=== PATIENT | female | born 1985 | race Caucasian/White ===

== ENCOUNTER 2016-12-09 22:39 | Emergency (ER) | payer OTHER ==
[~2016-12-09] VITALS: Ht 172.7 cm; Wt 74.8 kg
[~2016-12-09 22:39] MED LIST: CIPR-225 PO; DOCU100C37 PO; FLUO20CA25 PO; HC A30CR RC; IBUP-1780 PO; LISI1TAB8 PO; METH250T PO; METR500T PO; OMEP20CA12 PO; OXYC-197 PO; OXYC-465 PO; PHEN-452 PO; PREN-37 PO
[2016-12-09] MEDS ORDERED: OMEP40CA36 (22:56)
[2016-12-09] MEDS ORDERED: PHEN-483 (22:56)
--- NOTE | 2016-12-09 23:11 | ED GU-Female ---
General Chief Complaint: Abdominal/GI Problems Stated Complaint: SEVERE KIDNEY PAIN Nursing Triage Note: LEFT FLANK PAIN RADIATING TO ABDOMEN Nursing Sepsis Screen: No Definite Risk Source: patient, RN notes reviewed Exam Limitations: no limitations History of Present Illness Time seen by provider: 23:08 Timing/Duration: this evening (1700) Severity/Quality: severe (9/10), sharp, stabbing Location: left flank Radiation: LLQ Activities at Onset: none Prior Genitourinary Problems: none Modifying Factors: Worsens With Movement Associated Symptoms: abdominal pain, lower back pain Allergies and Home Medications Allergies Coded Allergies: No Known Drug Allergies (Unverified , 10/31/15) Home Medications Cefdinir 300 Mg Capsule, 300 MG PO BID, #20 Ref 0 Prescribed by: KRANTHI CALLES on 12/10/1658 Diclofenac Sodium 50 Mg Tablet.dr, 50 MG PO Q6H PRN for FLANK, #30 Ref 0 Prescribed by: KRANTHI CALLES on 12/10/1658 Omeprazole 40 Mg Capsule.dr, #30 (Reported) Phentermine HCl 37.5 Mg Capsule, #30 (Reported) Constitutional: see HPI Gastrointestinal: LLQ Genitourinary: flank pain (left) : No All Other Systemes Reviewed Negative Unless Noted: Yes (Negative excepted noted.) Past Qvihlmd-Jhcldc-Fweixd Hx Patient Social History Alcohol Use: Occasionally Uses Recreational Drug Use: No Smoking Status: Current Everyday Smoker Type Used: Cigarettes 2nd Hand Smoke Exposure: Yes Recent Foreign Travel: No Contact w/Someone Who Travel: No Recent Infectious Disease Expo: No Recent Hopitalizations: No Immunizations Up To Date Tetanus Booster (TDap): Unknown PED Vaccines UTD: Yes Seasonal Allergies Seasonal Allergies: No Surgeries HX Surgeries: Yes (hernia repair as an infant) Respiratory Hx Respiratory Disorders: No Cardiovascular Hx Cardiac Disorders: Yes Cardiac Disorders: Hypertension Neurological Hx Neurological Disorders: No Reproductive System : No Hx Reproductive Disorders: No HIV/AIDS: No Female Reproductive Disorders: Denies Genitourinary Hx Genitourinary Disorders: No Gastrointestinal Hx Gastrointestinal Disorders: Yes (HX PROCTITIS-OFF ANTIBIOTIC 10/31/15) Gastrointestinal Disorders: Gastroesophageal Reflux Musculoskeletal Hx Musculoskeletal Disorders: No Endocrine Hx Endocrine Disorders: No HEENT HX ENT Disorders: No Loss of Vision: Denies Hearing Impairment: Denies Cancer Hx Cancer: No Psychosocial Hx Psychiatric Problems: Yes Behavioral Health Disorders: Anxiety, Depression Integumentary HX Skin/Integumentary Disorder: No Blood Transfusions Hx Blood Disorders: No Adverse Reaction to a Blood Tr: No Family Medical History Significant Family History: Cancer, Diabetes, GI Disease Family Medial History: Diabetes mellitus 19 MOTHER, Onset:40's - 50 FH: ovarian cancer in first degree relative 19 MOTHER, Onset:30's - 40 Hypercholesterolemia 19 MOTHER, Onset:40's - 50 Meningitis 19 FATHER, Onset:50's - 60 Pancreatitis 19 MOTHER, Onset:40's - 50 Pituitary disease 19 MOTHER, Onset:40's - 50 Physical Exam Vital Signs Vital Sign - Last 12Hours 12/09/16 22:57 Temp 99.1 Pulse 116 Resp 18 B/P (MAP) 144/107 Pulse Ox 96 O2 Delivery Room Air Capillary Refill : Less Than 3 Seconds General Appearance: WD/WN, moderate distress HEENT: normal ENT inspection Neck: normal inspection Cardiovascular: tachycardia Respiratory: no respiratory distress Gastrointestinal: No guarding, No rebound, tenderness (LLQ) Rectal: deferred Back: CVA tenderness (L) Neurologic/Psychiatric: no motor/sensory deficits, alert, oriented x 3 Skin: warm/dry Progress/Results/Core Measures Results/Orders Lab Results Laboratory Tests Test 12/09/16 22:54 Range/Units Urine Color YELLOW Urine Clarity CLOUDY H Urine pH 6 5-9 Urine Specific [place] 1.015 L 1.016-1.022 Urine Protein 4+ NEGATIVE Urine Glucose (UA) NEGATIVE NEGATIVE Urine Ketones NEGATIVE NEGATIVE Urine Nitrite POSITIVE H NEGATIVE Urine Bilirubin NEGATIVE NEGATIVE Urine Urobilinogen NORMAL NORMAL MG/DL Urine Leukocyte Esterase 3+ H NEGATIVE Urine RBC (Auto) 5+ H NEGATIVE Urine RBC TNTC H /HPF Urine WBC 50-100 H /HPF Urine Crystals NONE /LPF Urine Bacteria FEW H /HPF Urine Casts NONE /LPF Urine Mucus NEGATIVE /LPF Urine Culture Indicated YES Urine Test NEGATIVE NEGATIVE Micro Results Microbiology 12/09/16 Urine Culture - Preliminary, Resulted Probable E.coli My Orders Orders - KRANTHI CALLES DO Ua Culture If Indicated (12/09/16 23:09) Hcg,Qualitative Urine (12/09/16 23:09) Ketorolac Injection (Toradol Injection) (12/09/16 23:15) Urine Culture (12/09/16 22:54) Ct Abd/Pelvis Wo(Kidney Stone) (12/09/16 23:27) Ceftriaxone Injection (Rocephin Injectio (12/10/16 01:00) Lidocaine 1% Injection (Xylocaine 1% Inj (12/10/16 01:00) Im/Sub-Q Injection Non-Ab Ed (12/09/16 ) Im Injection Antibiotic Ed (12/09/16 ) Medications Given in ED Vital Signs/I&O Blood Pressure Mean: 119 Diagnostic Imaging Diagonstic Imaging: CT Plain Films/CT/US/NM/MRI: abdomen, pelvis Reviewed: Reviewed Night [facility] Study Departure Impression Impression: Primary Impression: Pyelonephritis Disposition: HOME, SELF-CARE Condition: Stable Departure-Patient Inst. Decision time for Depature: 00:57 Referrals: ADITYA BROCK MD (PCP/Family) Primary Care Physician Patient Instructions: Urinary Tract Infection, Adult (DC) Scripts Diclofenac Sodium (Diclofenac Sodium) 50 Mg Tablet.dr 50 MG PO Q6H Y for FLANK, #30 TAB 0 Refills Prov: KRANTHI CALLES DO 12/10/16 Cefdinir (Cefdinir) 300 Mg Capsule 300 MG PO BID for UTI, #20 CAP 0 Refills Prov: KRANTHI CALLES DO 12/10/16 KRANTHI CALLES DO December 09, 2016 23:11
[2016-12-09] MEDS ORDERED: KETOROLAC 60 MG/2 ML VIAL IM ONE (23:15)
[2016-12-09 23:16] LABS: BILIRUBIN,URINE NEGATIVE (NEGATIVE); KETONES,URINE NEGATIVE (NEGATIVE); LEUKOCYTE ESTERASE ,URINE 3+ (NEGATIVE); NITRITE,URINE POSITIVE (NEGATIVE); PH,URINE 6 (5-9); PROTEIN,URINE 4+ (NEGATIVE); UROBILINOGEN,URINE NORMAL (NORMAL)
[2016-12-09 23:23] LABS: WBC,URINE 50-100 /HPF
[2016-12-10] MEDS ORDERED: CEFD300C3 PO (00:59)
[2016-12-10] MEDS ORDERED: DICL50TA6 PO (00:59)
[2016-12-10] MEDS ORDERED: LIDOCAINE 1% INJ 20 ML (XYLOCAINE) VIAL INJ ONE (01:00)
[2016-12-10] MEDS ORDERED: cefTRIAXone 1 GM (ROCEPHIN) VIAL IM ONE (01:00)
[2016-12-10 01:18] VITALS: BP 149/100
--- NOTE | 2016-12-10 08:03 | Diagnostic Imaging Report ---
PROCEDURE: CT urinary tract, rule out kidney stone. TECHNIQUE: Multiple contiguous axial images were obtained through the abdomen and pelvis without the use of intravenous contrast. INDICATION: Left flank pain There are no prior studies available for comparison. The right renal pelvis and proximal ureter do seem somewhat prominent compared to the left. There is no sign of obstructive calculus but this could be secondary to the recent passage of a small calculus. Clinical follow up is recommended. There is no sign of nephrolithiasis or urolithiasis on the left. The liver, spleen, pancreas, gallbladder, adrenals, aorta and inferior vena cava are unremarkable for an acute abnormality. The stomach is not well-distended and consequently difficult to assess. There is some distortion of the mesenteric fat near the umbilicus. This could be related to mild edema/inflammation perhaps secondary to enteritis. Clinical follow up is recommended. There is no pelvic mass or free fluid collection noted. The uterus and urinary bladder are grossly unremarkable. There is a tampon within the vagina. The appendix was not well-visualized but there are no indirect signs of acute appendicitis. The bone windows show no evidence for a fracture or for a destructive lesion. Lung bases are clear. IMPRESSION: 1. There is no evidence for an obstructive calculus on the right but the slight prominence of the right renal pelvis and right ureter does raise the question of a recently passed calculus. Clinical follow up is recommended. 2. The distortion of the mesenteric fat near the umbilicus is of uncertain etiology. This could be related to mild edema/inflammation. This could also be a sequela of a surgical procedure. Correlation with the patient's history would be recommended. 3. There is no acute abnormality of the abdomen or pelvis noted otherwise. Dictated by: Dictated on workstation # [id number]
== END 2016-12-10 01:18 | disposition home or self-care (01) ==
LOC: EDUNIT# 22:39 → ER 22:42
DX: N12 Tubulo-interstitial nephritis, not specified as acute or chronic (principal); I10 Essential (primary) hypertension; F17.210 Nicotine dependence, cigarettes, uncomplicated
CPT/HCPCS: 74176; 81000; 84703; 87088; 96372; 99282

== ENCOUNTER 2017-02-26 15:13 | Emergency (ER) | payer OTHER ==
[~2017-02-26] VITALS: Ht 172.7 cm; Wt 72.6 kg
[~2017-02-26 15:13] MED LIST changes: +CEFD300C3 PO; +DICL50TA6 PO; +OMEP40CA36; +PHEN-483
[2017-02-26 16:00] VITALS: BP 136/76
--- NOTE | 2017-02-26 16:00 | ED Cardiac General ---
History of Present Illness General Chief Complaint: Cardiac/General Problems Stated Complaint: HIGH BP Nursing Triage Note: PT REPORTS SHE HAS SOLIS, DYSPNEA, AND VISION PROBLEMS TODAY. SHE STATES A CO WORKER TOOK HER BP AND IT WAS ELEVATED. Source: patient Exam Limitations: no limitations History of Present Illness Time seen by provider: 15:58 Initial Comments To ER with reports of hypertension. This occurred earlier today at work. She had associated dyspnea, headache, blurred vision and her initial blood pressure on the electronic machine was 130/105. They recheck this with a manual cuff at work and thought to be 160/110. She states she just didn't feel right. At this time she has a slight headache but otherwise feels back to normal. She is currently on phentermine. She believes this to be secondary to her phentermine use. Severity: moderate NTG SL CULINARY MANAGER: No ASA po CULINARY MANAGER: No Associated Systoms: No Chest Pain, No Cough, No Diaphoresis, No Fever/Chills, Headaches Allergies and Home Medications Allergies Coded Allergies: No Known Drug Allergies (Unverified , 10/31/15) Home Medications Cefdinir 300 Mg Capsule, 300 MG PO BID, #20 Ref 0 Prescribed by: KRANTHI CALLES on 12/10/16 005 Diclofenac Sodium 50 Mg Tablet.dr, 50 MG PO Q6H PRN for FLANK, #30 Ref 0 Prescribed by: KRANTHI CALLES on 12/10/1658 Omeprazole 40 Mg Capsule.dr, #30 (Reported) Phentermine HCl 37.5 Mg Capsule, #30 (Reported) Review of Systems Constitutional: see HPI EENTM: See HPI, Blurred Vision Respiratory: No Symptoms Reported Cardiovascular: No Symptoms Reported, Denies Chest Pain, Denies Edema, Denies Irregular Heart Rate, Denies Lightheadedness Gastrointestinal: No Symptoms Reported Genitourinary: No Symptoms Reported Musculoskeletal: no symptoms reported Skin: no symptoms reported Psychiatric/Neurological: No Symptoms Reported Endocrine: No Symptoms Reported Hematologic/Lymphatic: No Symptoms Reported Past Lryvwew-Aageuv-Hmktxm Hx Patient Social History Alcohol Use: Occasionally Uses Recreational Drug Use: No Smoking Status: Current Everyday Smoker Type Used: Cigarettes 2nd Hand Smoke Exposure: Yes Recent Foreign Travel: No Contact w/Someone Who Travel: No Recent Infectious Disease Expo: No Recent Hopitalizations: No Immunizations Up To Date Tetanus Booster (TDap): Unknown PED Vaccines UTD: Yes Seasonal Allergies Seasonal Allergies: No Surgeries HX Surgeries: Yes (hernia repair as an ) Respiratory Hx Respiratory Disorders: No Cardiovascular Hx Cardiac Disorders: Yes Cardiac Disorders: Hypertension Neurological Hx Neurological Disorders: No Reproductive System Hx Reproductive Disorders: No HIV/AIDS: No Female Reproductive Disorders: Denies Genitourinary Hx Genitourinary Disorders: No Gastrointestinal Hx Gastrointestinal Disorders: Yes (HX PROCTITIS-OFF ANTIBIOTIC 10/31/15) Gastrointestinal Disorders: Gastroesophageal Reflux Musculoskeletal Hx Musculoskeletal Disorders: No Endocrine Hx Endocrine Disorders: No HEENT HX ENT Disorders: No Loss of Vision: Denies Hearing Impairment: Denies Cancer Hx Cancer: No Psychosocial Hx Psychiatric Problems: Yes Behavioral Health Disorders: Anxiety, Depression Integumentary HX Skin/Integumentary Disorder: No Blood Transfusions Hx Blood Disorders: No Adverse Reaction to a Blood Tr: No Family Medical History Significant Family History: Cancer, Diabetes, GI Disease Family Medial History: Diabetes mellitus 19 MOTHER, Onset:40's - 50 FH: ovarian cancer in first degree relative 19 MOTHER, Onset:30's - 40 Hypercholesterolemia 19 MOTHER, Onset:40's - 50 Meningitis 19 FATHER, Onset:50's - 60 Pancreatitis 19 MOTHER, Onset:40's - 50 Pituitary disease 19 MOTHER, Onset:40's - 50 Physical Exam Vital Signs Vital Sign - Last 12Hours 02/26/17 15:35 Temp 97.3 Pulse 114 Resp 20 B/P (MAP) 113/76 Pulse Ox 98 O2 Delivery Room Air Capillary Refill : Less Than 3 Seconds General Appearance: No Apparent Distress, WD/WN, Other (blood pressure 139/83. Heart rate 108. Patient states that she feels essentially back to normal except for some headache. I did offer laboratory testing and workup but she declines and she states that she is reassured knowing that her blood pressure is lower.) HEENT: PERRL/EOMI, TMs Normal Neck: Full Range of Motion, Normal Inspection Respiratory: Normal Breath Sounds, No Accessory Muscle Use, No Respiratory Distress Cardiovascular: Regular Rate, Rhythm, Normal Peripheral Pulses Gastrointestinal: Normal Bowel Sounds, Non Tender, Soft Extremity: Normal Capillary Refill, Normal Inspection Neurologic/Psychiatric: Alert, Oriented x3 Skin: Normal Color, Warm/Dry Progress/Results/Core Measures Results/Orders Vital Signs/I&O Vital Sign - Last 12Hours 02/26/17 15:35 Temp 97.3 Pulse 114 Resp 20 B/P (MAP) 113/76 Pulse Ox 98 O2 Delivery Room Air Blood Pressure Mean: 88 Departure Impression Impression: Primary Impression: Adverse effects of medication Disposition: 01 HOME, SELF-CARE Condition: Stable Departure-Patient Inst. Decision time for Depature: 16:00 Referrals: ADITYA BROCK MD (PCP/Family) Primary Care Physician Patient Instructions: NO INSTRUCTIONS GIVEN Add. Discharge Instructions: 1. Follow-up with your doctor next week 2. Return to ER for any concerns 3. I would reduce your phentermine dose or discontinue use of this. All discharge instructions reviewed with patient and/or family. Voiced understanding. DIONE CALERO APRN Feb 26, 2017 16:00
== END 2017-02-26 16:00 | disposition home or self-care (01) ==
LOC: EDUNIT# 15:13 → ER 15:14
DX: T50.5X5A Adverse effect of appetite depressants, initial encounter (principal); I10 Essential (primary) hypertension; F41.9 Anxiety disorder, unspecified; F32.9 Major depressive disorder, single episode, unspecified; K21.9 Gastro-esophageal reflux disease without esophagitis; F17.210 Nicotine dependence, cigarettes, uncomplicated; Z80.41 Family history of malignant neoplasm of ovary
CPT/HCPCS: 99283

== ENCOUNTER → 2017-09-27 | Outpatient (CLI) | payer OTHER ==
--- NOTE | 2017-09-27 13:04 | Diagnostic Imaging Report ---
INDICATION: Pelvic pain and irregular bleeding. TECHNIQUE: Multiple realtime grayscale images were obtained over the pelvis both transabdominally and endovaginally. FINDINGS: Uterus measures 7.3 x 6 x 4.8 cm. Endometrial thickness is 1.1 cm. There are no discrete myometrial or endometrial masses. Both ovaries are normal in size and morphology and demonstrate normal blood flow. There is a 2.4 cm hypoechoic mass in the left ovary, suspect for hemorrhagic cyst. There is an additional 3 cm simple cyst in the left ovary. There are no other adnexal masses. There is no free pelvic fluid. IMPRESSION: 1. Simple and likely hemorrhagic cyst in the left ovary, as described. 2. Thickening of the endometrium up to 1.1 cm, presumably reflecting the proliferative phase of the patient's menstrual cycle. Dictated by: Dictated on workstation # [id number]
== END ==
LOC: RAD 11:59
PROVIDERS: ATTEND Nurse Practitioner Family
DX: N92.6 Irregular menstruation, unspecified (principal)
CPT/HCPCS: 76830; 76856

== ENCOUNTER 2020-08-02 19:52 | Emergency (ER) | payer BC ==
[~2020-08-02] VITALS: Ht 172.7 cm; Wt 89.8 kg
[~2020-08-02 19:52] MED LIST changes: +LISI1TAB46 PO; -LISI1TAB8 PO; -METH250T PO; +METH250T5 PO; -OMEP20CA12 PO; +OMEP20CA18 PO; +OMEP40CA27; -OMEP40CA36; -OXYC-197 PO; -OXYC-465 PO; +OXYC-556 PO; +OXYC1TAB87 PO
[2020-08-02] MEDS ORDERED: NS IV 500 ML 500 ML IV ONE (20:15)
[2020-08-02] MEDS ORDERED: KETOROLAC 30 MG/ML VIAL IVP ONE (20:15)
[2020-08-02 20:18] LABS: BILIRUBIN,URINE NEGATIVE (NEGATIVE); CLARITY,URINE CLEAR; COLOR,URINE YELLOW; GLUCOSE, URINE (UA) NEGATIVE (NEGATIVE); KETONES,URINE NEGATIVE (NEGATIVE); LEUKOCYTE ESTERASE ,URINE NEGATIVE (NEGATIVE); NITRITE,URINE NEGATIVE (NEGATIVE); PROTEIN,URINE NEGATIVE (NEGATIVE)
--- NOTE | 2020-08-02 20:20 | ED Abdominal Pain ---
General Chief Complaint: Abdominal/GI Problems Stated Complaint: ABD PAIN Source of Information: Patient Exam Limitations: No Limitations History of Present Illness Date Seen by Provider: Aug 02, 2020 Time Seen by Provider: 19:59 Initial Comments The patient presents to the ER by private conveyance from home with chief complaint that she is having some right lower quadrant abdominal pain for the past day or so. She has not been able to pass a bowel movement is afraid maybe she had gas so she took some Phazyme. She is not on any laxatives. Stress of ibuprofen about 1 or 2:00 in the afternoon. She rates her pain is about a 4-5 out of 10. She takes omeprazole from Dr. Brock as well as for the past couple of months she has been on phentermine. She is not having any dysuria hematuria. She is having no nausea vomiting fever chills cough or shortness of air. She quit vaping about a week ago because she did not feel like she was getting over her pneumonia from a few months back fast enough. She is not having a cough and no known sick contacts. She has had a umbilical hernia repair but no other abdominal surgeries. She had a cheeseburger from [employer] around 1 or 2 in the afternoon and it did not help or make her pain any worse. Allergies and Home Medications Allergies Coded Allergies: No Known Drug Allergies (Unverified , 10/31/15) Home Medications Cefdinir 300 Mg Capsule, 300 MG PO BID Prescribed by: KRANTHI CALLES on 12/10/1658 Diclofenac Sodium 50 Mg Tablet.dr, 50 MG PO Q6H PRN for FLANK Prescribed by: KRANTHI CALLES on 12/10/1658 Patient Home Medication List Home Medication List Reviewed: Yes Review of Systems Review of Systems Constitutional: No chills, No diaphoresis EENTM: No Blurred Vision, No Double Vision Respiratory: Denies Cough, Denies Orthopnea, Denies Shortness of Air Cardiovascular: Denies Chest Pain, Denies Lightheadedness Gastrointestinal: Abdominal Pain, Constipated; Denies Diarrhea, Denies Nausea Genitourinary: Denies Burning, Denies Discharge Musculoskeletal: No back pain, No joint pain All Other Systems Reviewed Negative Unless Noted: Yes Past Fykbzdf-Fsqyms-Knuotl Hx Patient Social History Alcohol Use: Occasionally Uses Alcohol Beverage of Choice: Beer Recreational Drug Use: No Smoking Status: Current Everyday Smoker Type Used: Cigarettes, Electronic/Vapor 2nd Hand Smoke Exposure: Yes Recent Foreign Travel: No Contact w/Someone Who Travel: No Recent Hopitalizations: No Immunizations Up To Date Tetanus Booster (TDap): Unknown PED Vaccines UTD: Yes Seasonal Allergies Seasonal Allergies: No Past Medical History Surgeries: Yes (hernia repair) Respiratory: No Cardiac: Yes Hypertension Neurological: No Reproductive Disorders: No Female Reproductive Disorders: Denies HIV/AIDS: No Genitourinary: No Gastrointestinal: Yes Gastroesophageal Reflux Musculoskeletal: No Endocrine: No HEENT: No Loss of Vision: Denies Hearing Impairment: Denies Cancer: No Psychosocial: Yes Anxiety, Depression Integumentary: No Blood Disorders: No Adverse Reaction/Blood Tranf: No Family Medical History Diabetes mellitus 19 MOTHER, Onset:40's - 50 FH: ovarian cancer in first degree relative 19 MOTHER, Onset:30's - 40 Hypercholesterolemia 19 MOTHER, Onset:40's - 50 Meningitis 19 FATHER, Onset:50's - 60 Pancreatitis 19 MOTHER, Onset:40's - 50 Pituitary disease 19 MOTHER, Onset:40's - 50 Cancer, Diabetes, GI Disease Physical Exam Vital Signs Vital Signs - First Documented 08/02/20 20:01 Temp 35.7 Pulse 101 Resp 16 B/P (MAP) 145/90 (108) O2 Delivery Room Air Capillary Refill : Height/Weight/BMI Height: 5'8.00" Weight: 160lbs. 0oz. 72.208996xr; 29.45 BMI Method:Stated General Appearance: WD/WN, mild distress HEENT: PERRL/EOMI, pharynx normal Neck: full range of motion, supple, normal inspection Respiratory: chest non-tender, lungs clear, normal breath sounds, no respiratory distress, no accessory muscle use Cardiovascular: normal peripheral pulses, regular rate, rhythm Peripheral Pulses: 2+ Radial Pulses (R), 2+ Radial Pulses (L) Gastrointestinal: normal bowel sounds, non tender, soft Extremities: normal range of motion, non-tender, normal inspection, no pedal edema, normal capillary refill Neurologic/Psychiatric: alert, normal mood/affect, oriented x 3 Skin: normal color, warm/dry Progress/Results/Core Measures Results/Orders Lab Results Laboratory Tests Test 08/02/20 20:10 08/02/20 20:20 Range/Units Urine Color YELLOW Urine Clarity CLEAR Urine pH 6.0 5-9 Urine Specific [place] 1.025 H 1.016-1.022 Urine Protein NEGATIVE NEGATIVE Urine Glucose (UA) NEGATIVE NEGATIVE Urine Ketones NEGATIVE NEGATIVE Urine Nitrite NEGATIVE NEGATIVE Urine Bilirubin NEGATIVE NEGATIVE Urine Urobilinogen 0.2 < = 1.0 MG/DL Urine Leukocyte Esterase NEGATIVE NEGATIVE Urine RBC (Auto) NEGATIVE NEGATIVE Urine RBC NONE /HPF Urine WBC RARE /HPF Urine Squamous Epithelial Cells 10-25 H /HPF Urine Crystals NONE /LPF Urine Bacteria NEGATIVE /HPF Urine Casts NONE /LPF Urine Mucus NEGATIVE /LPF Urine Culture Indicated NO White Blood Count 12.1 H 4.3-11.0 10^3/uL Red Blood Count 4.33 3.80-5.11 10^6/uL Hemoglobin 13.1 11.5-16.0 g/dL Hematocrit 39 35-52 % Mean Corpuscular Volume 91 80-99 fL Mean Corpuscular Hemoglobin 30 25-34 pg Mean Corpuscular Hemoglobin Concent 33 32-36 g/dL Red Cell Distribution Width 12.6 10.0-14.5 % Platelet Count 337 130-400 10^3/uL Mean Platelet Volume 9.9 9.0-12.2 fL Immature Granulocyte % (Auto) 0 % Neutrophils (%) (Auto) 53 42-75 % Lymphocytes (%) (Auto) 36 12-44 % Monocytes (%) (Auto) 9 0-12 % Eosinophils (%) (Auto) 2 0-10 % Basophils (%) (Auto) 1 0-10 % Neutrophils # (Auto) 6.4 1.8-7.8 10^3/uL Lymphocytes # (Auto) 4.3 H 1.0-4.0 10^3/uL Monocytes # (Auto) 1.0 0.0-1.0 10^3/uL Eosinophils # (Auto) 0.2 0.0-0.3 10^3/uL Basophils # (Auto) 0.1 0.0-0.1 10^3/uL Immature Granulocyte # (Auto) 0.0 0.0-0.1 10^3/uL Sodium Level 139 135-145 MMOL/L Potassium Level 3.7 3.6-5.0 MMOL/L Chloride Level 103 98-107 MMOL/L Carbon Dioxide Level 23 21-32 MMOL/L Anion Gap 13 5-14 MMOL/L Blood Urea Nitrogen 14 7-18 MG/DL Creatinine 0.78 0.60-1.30 MG/DL Estimat Glomerular Filtration Rate > 60 BUN/Creatinine Ratio 18 Glucose Level 90 70-105 MG/DL Calcium Level 9.5 8.5-10.1 MG/DL Corrected Calcium 9.1 8.5-10.1 MG/DL Total Bilirubin 0.4 0.1-1.0 MG/DL Aspartate Amino Transf (AST/SGOT) 19 5-34 U/L Alanine Aminotransferase (ALT/SGPT) 24 0-55 U/L Alkaline Phosphatase 73 40-136 U/L C-Reactive Protein High Sensitivity 0.86 H 0.00-0.50 MG/DL Total Protein 7.7 6.4-8.2 GM/DL Albumin 4.5 3.2-4.5 GM/DL Lipase 12 8-78 U/L My Orders Orders - BRIAN CERON Ua Culture If Indicated (08/02/20 20:09) Urine Bedside (08/02/20 20:09) Cbc With Automated Diff (08/02/20 20:09) Comprehensive Metabolic Panel (08/02/20 20:09) Hs C Reactive Protein (08/02/20 20:09) Lipase (08/02/20 20:09) Ed Iv/Invasive Line Start (08/02/20 20:09) Ns Iv 500 Ml (Sodium Chloride 0.9%) (08/02/20 20:15) Ketorolac Injection (Toradol Injection) (08/02/20 20:15) Medications Given in ED Current Medications Medications Dose Ordered Sig/Heri Route Start Time Stop Time Status Last Admin Dose Admin Ketorolac Tromethamine 30 mg ONCE ONCE IVP 08/02/20 20:15 08/02/20 20:16 DC 08/02/20 20:22 30 MG Sodium Chloride 500 ml @ 0 mls/hr Q0M ONCE IV 08/02/20 20:15 08/02/20 20:16 DC 08/02/20 20:22 999 MLS/HR Vital Signs/I&O 08/02/20 20:01 Temp 35.7 Pulse 101 Resp 16 B/P (MAP) 145/90 (108) O2 Delivery Room Air Progress Progress Note #1: Time: 20:23 Progress Note Plan on giving her a little fluids and checking some labs. Abdominal exam she does have some left lower quadrant tenderness but no McBurney's point tenderness epigastric tenderness. Appendicitis is still a possibility. Fonseca sign is negative. She has no other mesenteric signs. Constipation is certainly high on the differential especially using phentermine. Urinalysis and bedside . Toradol for her pain. Progress Note #2: Time: 21:24 Progress Note Patient's pain is significantly improved. She is comfortable and her abdominal exam is much less concerning. Vital signs are normal. Labs and urine were reviewed with the patient and unremarkable. We discussed [address] options of doing a CT of her abdomen pelvis to rule out significant gynecologic problems or appendicitis versus treating her k nown constipation and seeing if this would resolve her problems. She would like to try to do the observation at home with colon cleanout first. We have given her good return precautions and will provide her with a little nausea medicine. Departure Impression Primary Impression: Abdominal pain Qualified Codes: R10.32 - Left lower quadrant pain Additional Impression: Obstipation Disposition: 01 HOME, SELF-CARE Condition: Stable Departure-Patient Inst. Decision time for Depature: 21:28 Referrals: ADITYA BROCK MD (PCP/Family) Primary Care Physician Patient Instructions: Constipation, Adult (DC) Add. Discharge Instructions: There could be several reasons for your abdominal pain. Constipation is one of them. Plan to go home drink plenty of fluids and try MiraLAX 1 capful in 6 to 8 ounces of fluid 2-4 times a day. Enemas once or twice a day for the first 2 days. If you have passed significant bowel movements and your symptoms are not improving then you need to follow-up with your primary care doctor or return to the ER if your symptoms are worsening. Return to ER if you are having intractable pain despite Tylenol, ibuprofen heating pads and rest. If you have nausea you may use Zofran/ondansetron 1 tablet under the tongue every 6 hours as necessary. If you develop fever or other worrisome symptoms then please return to the ER. All discharge instructions reviewed with patient and/or family. Voiced understanding. Work/School Note: Work Release Form Date Seen in the Emergency Department: Aug 02, 2020 Return to Work: Aug 05, 2020 Restrictions: No Restrictions BRIAN CERON Aug 02, 2020 20:20
[2020-08-02 20:28] LABS: BASOPHILS # (AUTO) 0.1 10^3/uL (0.0-0.1); BASOPHILS % (AUTO) 1 % (0-10); EOSINOPHILS # (AUTO) 0.2 10^3/uL (0.0-0.3); EOSINOPHILS % (AUTO) 2 % (0-10); HEMATOCRIT 39 % (35-52); HEMOGLOBIN 13.1 g/dL (11.5-16.0); LYMPHOCYTES # (AUTO) 4.3 10^3/uL (1.0-4.0); LYMPHOCYTES % (AUTO) 36 % (12-44); MEAN CORPUSCULAR HEMOGLOBIN 30 pg (25-34); MEAN CORPUSCULAR HGB CONC 33 g/dL (32-36); MEAN CORPUSCULAR VOLUME 91 fL (80-99); MEAN PLATELET VOLUME 9.9 fL (9.0-12.2); MONOCYTES % (AUTO) 9 % (0-12); NEUTROPHILS # (AUTO) 6.4 10^3/uL (1.8-7.8); NEUTROPHILS % (AUTO) 53 % (42-75); PLATELET COUNT 337 10^3/uL (130-400); WHITE BLOOD COUNT 12.1 10^3/uL (4.3-11.0)
[2020-08-02 20:30] LABS: BACTERIA,URINE NEGATIVE /HPF; WBC,URINE RARE /HPF
[2020-08-02 20:42] LABS: ALBUMIN 4.5 GM/DL (3.2-4.5); CHLORIDE 103 MMOL/L (98-107); POTASSIUM 3.7 MMOL/L (3.6-5.0); SODIUM 139 MMOL/L (135-145)
[2020-08-02 20:43] LABS: CALCIUM 9.5 MG/DL (8.5-10.1)
[2020-08-02 20:45] LABS: GLUCOSE 90 MG/DL (70-105); TOTAL PROTEIN 7.7 GM/DL (6.4-8.2)
[2020-08-02 20:46] LABS: BILIRUBIN,TOTAL 0.4 MG/DL (0.1-1.0); CARBON DIOXIDE 23 MMOL/L (21-32)
[2020-08-02 20:48] LABS: ALKALINE PHOSPHATASE 73 U/L (40-136); CREATININE SERUM 0.78 MG/DL (0.60-1.30); GFR ESTIMATED > 60
[2020-08-02 20:49] LABS: BUN/CREATININE RATIO 18
[2020-08-02 20:51] LABS: ALANINE AMINOTRANSFERASE 24 U/L (0-55); LIPASE 12 U/L (8-78)
[2020-08-02] MEDS ORDERED: RX-ONDANSETRON 4 MG ODT (ZOFRAN) PPK #4 PO STA (21:31)
[2020-08-02 21:41] VITALS: BP 124/88
== END 2020-08-02 21:42 | disposition home or self-care (01) ==
LOC: EDUNIT# 19:52 → ER 19:55
DX: K59.00 Constipation, unspecified (principal); I10 Essential (primary) hypertension; F17.210 Nicotine dependence, cigarettes, uncomplicated; F17.290 Nicotine dependence, other tobacco product, uncomplicated; Z80.49 Family history of malignant neoplasm of other genital organs
CPT/HCPCS: 36415; 80053; 81000; 83690; 84703; 85025; 86141

== ENCOUNTER 2020-08-05 00:19 | Emergency (ER) | payer BC ==
--- NOTE | 2020-08-05 00:46 | ED General ---
General Chief Complaint: Chest Pain Stated Complaint: L ARM/FACE NUMBNESS, CHEST PAIN, VISION PROBLEMS Source of Information: Patient History of Present Illness Date Seen by Provider: Aug 05, 2020 Time Seen by Provider: 00:28 Initial Comments PT ARRIVES VIA POV FROM HOME STATES SHE WAS LAYING DOWN WITH HER SON, AROUND 2000 TONIGHT, AND BEGAN HAVING CHEST PRESSURE--GONE NOW THEN STARTED HAVING SOME "NUMBNESS" TO LEFT ARM AND LEFT SIDE OF FACE--STATES IT FELT "NUMB" WHEN SHE WAS LAYING DOWN, AND THEN JUST FELT "HEAVY" WHEN SHE STOOD UP--LASTED APPROXIMATELY 1 1/2 HOURS AND IS GONE NOW STATES WHEN SHE STOOD UP SHE WAS A LITTLE BIT DIZZY AND HER VISION WAS A LITTLE "WOBBLY" FOR A COUPLE OF SECONDS, AND IS NORMAL NOW. NOTHING WORSENED OR IMPROVED SYMPTOMS THEN STATES SHE HAS BEEN HAVING THIS SAME PRESSURE IN HER CHEST FOR SEVERAL WEEKS-HAS NOT SOUGHT CARE, HAS NOT TAKEN ANYTHING FOR IT AND IS NO DIFFERENT TONIGHT STATES SHE REALLY ONLY NOTICES THE PAIN AT NIGHT WHEN SHE LAYS DOWN NO NAUSEA/VOMITING/DIARRHEA NO FEVER/SWEATS/CHILLS NO COUGH NO SHORTNESS OF BREATH NO LOSS OF TASTE OR SMELL NO HEADACHE NO BODY ACHES HERE 08/02/20 FOR ABDOMINAL PAIN AND WAS FOUND TO BE CONSTIPATED AND WAS ADVISED TO TAKE MIRALAX, BUT SHE HAS NOT STARTED TAKING THIS, AND ABDOMINAL PAIN WENT AWAY LMP 3 WEEKS AGO, NO CONTROL PT HAS HISTORY OF ANXIETY AND DEPRESSION AND WAS ON AN UNKNOWN MEDICATION, BUT SHE SELF DC'D IT OVER A MONTH AGO, DUE TO NOT LIKING THE WAY IT MADE HER FEEL. SEEN BY DR. DURANT ABOUT THAT SAME TIME, AND HE PRESCRIBED FLUOXETINE, WHICH SHE HAD BEEN ON IN THE PAST AND TOLERATED IT, BUT SHE HAS NOT STARTED IT YET. ALSO STATES THAT SHE HAS BEEN PRESCRIBED "LISINOPRIL" FOR HTN, BUT HAS NOT BEEN TAKING IT FOR A FEW WEEKS. 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 PT HAS BEEN TAKING PHENTERMINE FOR 3 MONTHS. PER MED RECONCILIATION, PT HAS BEEN PRESCRIBED: PHENTERMINE-MONTHLY SCRIPTS SINCE 05/28/20 ESCITALOPRAM 05/07/20 AND 05/30/20 FLUOXETINE 06/24/20--HAD BEEN PRESCRIBED 90 DAY SUPPLY 01/23/20 TOPROL XL 05/28/20 PCP: DR. BROCK Allergies and Home Medications Allergies Coded Allergies: No Known Drug Allergies (Unverified , 10/31/15) Home Medications Cefdinir 300 Mg Capsule, 300 MG PO BID Prescribed by: KRANTHI CALLES on 12/10/1658 Diclofenac Sodium 50 Mg Tablet.dr, 50 MG PO Q6H PRN for FLANK Prescribed by: KRANTHI CALLES on 12/10/1658 Patient Home Medication List Home Medication List Reviewed: Yes Review of Systems Review of Systems Constitutional: no symptoms reported; No chills, No diaphoresis, No dizziness, No fever, No malaise, No weakness EENTM: see HPI; No eye pain, No nose congestion, No throat pain Respiratory: no symptoms reported; No cough, No short of breath Cardiovascular: see HPI, chest pain; No edema, No palpitations, No syncope Gastrointestinal: see HPI; No abdominal pain; constipation; No diarrhea, No nausea, No vomiting Genitourinary: no symptoms reported : No LMP: Jul 15, 2020 Musculoskeletal: see HPI Skin: no symptoms reported Psychiatric/Neurological: See HPI, Anxiety, Depressed; Denies Headache; Numbness, Paresthesia; Denies Seizure; Tingling; Denies Weakness Hematologic/Lymphatic: No Symptoms Reported Immunological/Allergic: no symptoms reported Past Tdsimgp-Jucilc-Airicd Hx Past Med/Social Hx: Reviewed and Corrections made Patient Social History Alcohol Use: Occasionally Uses Alcohol Beverage of Choice: Beer Recreational Drug Use: Yes (SMOKED METH AND THC, SNORTED COCAINE--NONE X 8 YEARS. NO IV USE) Drug of Choice: SMOKED METH AND THC, SNORTED COCAINE, NONE X 8 YEARS. NO IV USE Smoking Status: Former Smoker (QUIT SMOKING CIGARETTES, NOW VAPES) Type Used: Cigarettes, Electronic/Vapor 2nd Hand Smoke Exposure: Yes Recent Foreign Travel: No Contact w/Someone Who Travel: No Recent Hopitalizations: No Immunizations Up To Date Tetanus Booster (TDap): Unknown PED Vaccines UTD: Yes Seasonal Allergies Seasonal Allergies: No Past Medical History Surgeries: Yes (HERNIA REPAIR) Abdominal Respiratory: No Cardiac: Yes Hypertension Neurological: No Reproductive Disorders: No Female Reproductive Disorders: Denies HIV/AIDS: No Genitourinary: No Gastrointestinal: Yes Gastroesophageal Reflux Musculoskeletal: No Endocrine: No HEENT: No Loss of Vision: Denies Hearing Impairment: Denies Cancer: No Psychosocial: Yes (SUBSTANCE ABUSE) Anxiety, Depression Integumentary: No Blood Disorders: No Adverse Reaction/Blood Tranf: No Family Medical History Diabetes mellitus 19 MOTHER, Onset:40's - 50 FH: ovarian cancer in first degree relative 19 MOTHER, Onset:30's - 40 Hypercholesterolemia 19 MOTHER, Onset:40's - 50 Meningitis 19 FATHER, Onset:50's - 60 Pancreatitis 19 MOTHER, Onset:40's - 50 Pituitary disease 19 MOTHER, Onset:40's - 50 Cancer, Diabetes, GI Disease Physical Exam Vital Signs Capillary Refill : Height, Weight, BMI Height: 5'8.00" Weight: 160lbs. 0oz. [id number]; 30.00 BMI Method:Stated General Appearance: Other (ANXIOUS, TEARFUL AT TIMES, CONSTANT MOVEMENTS, ESPECIALLY OF HEAD AND UPPER BODY. ) HEENT: PERRL/EOMI, TMs Normal, Normal ENT Inspection, Pharynx Normal Neck: Full Range of Motion, Normal Inspection, Non Tender, Supple Respiratory: Normal Breath Sounds, No Accessory Muscle Use, No Respiratory Distress Cardiovascular: No Edema, No JVD, No Murmur, Normal Peripheral Pulses, Tachycardia (100-130) Gastrointestinal: Normal Bowel Sounds, No Organomegaly, No Pulsatile Mass, Non Tender, Soft Back: Normal Inspection Extremity: Normal Inspection, Normal Range of Motion, Non Tender, No Calf Tenderness Neurologic/Psychiatric: Alert, Oriented x3, No Motor/Sensory Deficits, esl instructor II- XII Norm as Tested; No Abnormal Cerebellar Tests; Other (ANXIOUS, TEARFUL. ) Skin: Normal Color, Warm/Dry Progress/Results/Core Measures Suspected Sepsis SIRS Temperature: Pulse: Respiratory Rate: Laboratory Tests 08/05/20 01:00: White Blood Count 9.7 Blood Pressure / Mean: Laboratory Tests 08/05/20 01:00: Creatinine 0.81, INR Comment 1.0, Platelet Count 322, Total Bilirubin 0.3 Results/Orders Lab Results Laboratory Tests Test 08/05/20 00:55 08/05/20 01:00 Range/Units Urine Color YELLOW Urine Clarity SL CLOUDY Urine pH 6.0 5-9 Urine Specific [place] 1.010 L 1.016-1.022 Urine Protein NEGATIVE NEGATIVE Urine Glucose (UA) NEGATIVE NEGATIVE Urine Ketones NEGATIVE NEGATIVE Urine Nitrite NEGATIVE NEGATIVE Urine Bilirubin NEGATIVE NEGATIVE Urine Urobilinogen 0.2 < = 1.0 MG/DL Urine Leukocyte Esterase NEGATIVE NEGATIVE Urine RBC (Auto) NEGATIVE NEGATIVE Urine RBC NONE /HPF Urine WBC NONE /HPF Urine Squamous Epithelial Cells 5-10 /HPF Urine Crystals NONE /LPF Urine Bacteria NEGATIVE /HPF Urine Casts NONE /LPF Urine Mucus SMALL H /LPF Urine Culture Indicated NO Urine Opiates Screen NEGATIVE NEGATIVE Urine Oxycodone Screen NEGATIVE NEGATIVE Urine Methadone Screen NEGATIVE NEGATIVE Urine Propoxyphene Screen NEGATIVE NEGATIVE Urine Barbiturates Screen NEGATIVE NEGATIVE Ur Tricyclic Antidepressants Screen NEGATIVE NEGATIVE Urine Phencyclidine Screen NEGATIVE NEGATIVE Urine Amphetamines Screen POSITIVE H NEGATIVE Urine Methamphetamines Screen NEGATIVE NEGATIVE Urine Benzodiazepines Screen NEGATIVE NEGATIVE Urine Cocaine Screen NEGATIVE NEGATIVE Urine Cannabinoids Screen NEGATIVE NEGATIVE White Blood Count 9.7 4.3-11.0 10^3/uL Red Blood Count 4.06 3.80-5.11 10^6/uL Hemoglobin 12.3 11.5-16.0 g/dL Hematocrit 37 35-52 % Mean Corpuscular Volume 90 80-99 fL Mean Corpuscular Hemoglobin 30 25-34 pg Mean Corpuscular Hemoglobin Concent 34 32-36 g/dL Red Cell Distribution Width 12.4 10.0-14.5 % Platelet Count 322 130-400 10^3/uL Mean Platelet Volume 10.0 9.0-12.2 fL Immature Granulocyte % (Auto) 0 % Neutrophils (%) (Auto) 57 42-75 % Lymphocytes (%) (Auto) 33 12-44 % Monocytes (%) (Auto) 8 0-12 % Eosinophils (%) (Auto) 2 0-10 % Basophils (%) (Auto) 1 0-10 % Neutrophils # (Auto) 5.5 1.8-7.8 10^3/uL Lymphocytes # (Auto) 3.2 1.0-4.0 10^3/uL Monocytes # (Auto) 0.8 0.0-1.0 10^3/uL Eosinophils # (Auto) 0.2 0.0-0.3 10^3/uL Basophils # (Auto) 0.1 0.0-0.1 10^3/uL Immature Granulocyte # (Auto) 0.0 0.0-0.1 10^3/uL Erythrocyte Sedimentation Rate 8 0-20 MM/HR Prothrombin Time 13.5 12.2-14.7 SEC INR Comment 1.0 0.8-1.4 Activated Partial Thromboplast Time 29 24-35 SEC Sodium Level 138 135-145 MMOL/L Potassium Level 3.3 L 3.6-5.0 MMOL/L Chloride Level 104 98-107 MMOL/L Carbon Dioxide Level 22 21-32 MMOL/L Anion Gap 12 5-14 MMOL/L Blood Urea Nitrogen 11 7-18 MG/DL Creatinine 0.81 0.60-1.30 MG/DL Estimat Glomerular Filtration Rate > 60 BUN/Creatinine Ratio 14 Glucose Level 117 H 70-105 MG/DL Calcium Level 8.7 8.5-10.1 MG/DL Corrected Calcium 8.9 8.5-10.1 MG/DL Magnesium Level 1.9 1.6-2.4 MG/DL Total Bilirubin 0.3 0.1-1.0 MG/DL Aspartate Amino Transf (AST/SGOT) 13 5-34 U/L Alanine Aminotransferase (ALT/SGPT) 16 0-55 U/L Alkaline Phosphatase 69 40-136 U/L Total Creatine Kinase 32 29-168 U/L Creatine Kinase MB 0.8 <6.6 NG/ML Myoglobin 19.8 10.0-92.0 NG/ML Troponin I < 0.028 <0.028 NG/ML B-Type Natriuretic Peptide 27.7 <100.0 PG/ML Total Protein 6.3 L 6.4-8.2 GM/DL Albumin 3.7 3.2-4.5 GM/DL Amylase Level 23 L 25-125 U/L Lipase 11 8-78 U/L TSH [place] Testing 2.80 0.35-4.94 UIU/ML Serum Test, Qualitative NEGATIVE NEGATIVE Serum Alcohol < 10 <10 MG/DL My Orders Orders - CLAIRE KEE DO Ed Iv/Invasive Line Start (08/05/20:28) Urine Bedside (08/05/20:) Ekg Tracing (08/05/20:) Monitor-Rhythm Ecg Trace Only (08/05/20:) Ct Head Wo-R/O Stroke (08/05/20:) Chest 1 View, Ap/Pa Only (08/05/20:) Alcohol (1/11/21 00:28) Amylase (08/05/20:) BNP (08/05/20:) Cbc With Automated Diff (08/05/20) Comprehensive Metabolic Panel (08/05/20) Creatine Kinase (08/05/20) Creatine Kinase Mb (08/05/20) Drug Screen Stat (Urine) (08/05/20) Hcg,Qualitative Serum (08/05/20) Lipase (08/05/20) Magnesium (08/05/20) Protime With Inr (08/05/20) Partial Thromboplastin Time (08/05/20) Thyroid Analyzer (08/05/20) Ua Culture If Indicated (08/05/20) Erythrocyte Sedimentation Rate (08/05/20) Myoglobin Serum (08/05/20) Troponin I (08/05/20) Vital Signs/I&O Capillary Refill : Progress Note : Progress Note NO CHEST PAIN NO PARESTHESIAS OR OTHER NEUROLOGICAL SYMPTOMS DURING ER STAY BP DOWN WITHOUT TREATMENT PT FEELS COMFORTABLE GOING HOME AND IS SYMPTOM-FREE AT DISMISSAL PT ADVISED THAT SHE NEEDS TO START TAKING HER PRESCRIBED BLOOD PRESSURE MEDICATION, WELL HER MEDICATION FOR DEPRESSION/ANXIETY ECG Initial ECG Impression Date: Aug 05, 2020 Initial ECG Impression Time: 00:26 Initial ECG Rate: 111 Initial ECG Rhythm: S.Tach Diagnostic Imaging Comments CXR--NO ACUTE PROCESS, PENDING RADIOLOGIST REVIEW CT HEAD--NO ACUTE PROCESS, PER [facility] VIA FAX AT [id number] Reviewed: Reviewed by Me Departure Impression Primary Impression: Chest pain Additional Impressions: TRANSIENT PARESTHESIAS HTN (hypertension) Anxiety Disposition: 01 HOME, SELF-CARE Condition: Improved Departure-Patient Inst. Referrals: ADITYA BROCK MD (PCP/Family) Primary Care Physician Patient Instructions: Anxiety, Adult (DC), Chest Pain (DC), High Blood Pressure (DC), Paresthesia (DC), DASH Diet Add. Discharge Instructions: TAKE YOUR BLOOD PRESSURE AND ANXIETY/DEPRESSION MEDICATIONS EVERY DAY PRESCRIBED FOLLOW UP WITH DR. BROCK THIS WEEK FOR FURTHER CARE RETURN TO ER IF SYMPTOMS WORSEN All discharge instructions reviewed with patient and/or family. Voiced understanding. CLAIRE KEE DO Aug 05, 2020 00:46
[2020-08-05 01:08] LABS: BILIRUBIN,URINE NEGATIVE (NEGATIVE); CLARITY,URINE SL CLOUDY; COLOR,URINE YELLOW; GLUCOSE, URINE (UA) NEGATIVE (NEGATIVE); KETONES,URINE NEGATIVE (NEGATIVE); LEUKOCYTE ESTERASE ,URINE NEGATIVE (NEGATIVE); NITRITE,URINE NEGATIVE (NEGATIVE); PROTEIN,URINE NEGATIVE (NEGATIVE)
[2020-08-05 01:12] LABS: BASOPHILS # (AUTO) 0.1 10^3/uL (0.0-0.1); BASOPHILS % (AUTO) 1 % (0-10); EOSINOPHILS # (AUTO) 0.2 10^3/uL (0.0-0.3); EOSINOPHILS % (AUTO) 2 % (0-10); HEMATOCRIT 37 % (35-52); HEMOGLOBIN 12.3 g/dL (11.5-16.0); LYMPHOCYTES # (AUTO) 3.2 10^3/uL (1.0-4.0); LYMPHOCYTES % (AUTO) 33 % (12-44); MEAN CORPUSCULAR HEMOGLOBIN 30 pg (25-34); MEAN CORPUSCULAR HGB CONC 34 g/dL (32-36); MEAN CORPUSCULAR VOLUME 90 fL (80-99); MONOCYTES # (AUTO) 0.8 10^3/uL (0.0-1.0); MONOCYTES % (AUTO) 8 % (0-12); NEUTROPHILS # (AUTO) 5.5 10^3/uL (1.8-7.8); NEUTROPHILS % (AUTO) 57 % (42-75); PLATELET COUNT 322 10^3/uL (130-400); WHITE BLOOD COUNT 9.7 10^3/uL (4.3-11.0)
[2020-08-05 01:20] LABS: BACTERIA,URINE NEGATIVE /HPF
[2020-08-05 01:25] LABS: AMPHETAMINE SCREEN, URINE POSITIVE (NEGATIVE); BARBITURATE SCREEN URINE NEGATIVE (NEGATIVE); BENZODIAZEPINES SCREEN URINE NEGATIVE (NEGATIVE); CANNABINOID SCREEN, URINE NEGATIVE (NEGATIVE); COCAINE SCREEN URINE NEGATIVE (NEGATIVE); METHADONE STAT NEGATIVE (NEGATIVE); METHAMPHETAMINE SCREEN URINE S NEGATIVE (NEGATIVE); OPIATE SCREEN URINE NEGATIVE (NEGATIVE); OXYCODONE STAT NEGATIVE (NEGATIVE); PROPOXYPHENE STAT NEGATIVE (NEGATIVE); TRICYCLIC ANTIDEPRESSANTS SCRE NEGATIVE (NEGATIVE)
[2020-08-05 01:25] LABS: ALBUMIN 3.7 GM/DL (3.2-4.5); CHLORIDE 104 MMOL/L (98-107); POTASSIUM 3.3 MMOL/L (3.6-5.0); PROTHROMBIN TIME PATIENT 13.5 SEC (12.2-14.7); SODIUM 138 MMOL/L (135-145)
[2020-08-05 01:26] LABS: AMYLASE 23 U/L (25-125); CALCIUM 8.7 MG/DL (8.5-10.1)
[2020-08-05 01:28] LABS: GLUCOSE 117 MG/DL (70-105); TOTAL PROTEIN 6.3 GM/DL (6.4-8.2)
[2020-08-05 01:29] LABS: BILIRUBIN,TOTAL 0.3 MG/DL (0.1-1.0); CARBON DIOXIDE 22 MMOL/L (21-32)
[2020-08-05 01:31] LABS: ALKALINE PHOSPHATASE 69 U/L (40-136); CREATININE SERUM 0.81 MG/DL (0.60-1.30); GFR ESTIMATED > 60
[2020-08-05 01:32] LABS: BUN/CREATININE RATIO 14
[2020-08-05 01:34] LABS: ALANINE AMINOTRANSFERASE 16 U/L (0-55); MAGNESIUM 1.9 MG/DL (1.6-2.4)
[2020-08-05 01:35] LABS: CREATINE KINASE 32 U/L (29-168); LIPASE 11 U/L (8-78)
[2020-08-05 01:37] LABS: ERYTHROCYTE SEDIMENTATION RATE 8 MM/HR (0-20)
[2020-08-05 01:43] LABS: CREATINE KINASE MB 0.8 NG/ML (<6.6)
[2020-08-05 02:12] VITALS: BP 133/93
--- NOTE | 2020-08-05 06:44 | Diagnostic Imaging Report ---
INDICATION: Chest pain. COMPARISON: None. FINDINGS: Single view of the chest demonstrates clear lungs bilaterally. The heart is normal. There is no pneumothorax but osseous structures normal. IMPRESSION: Negative chest. Dictated by: Dictated on workstation # [id number]
--- NOTE | 2020-08-05 06:50 | Diagnostic Imaging Report ---
PROCEDURE: CT head wo r/o stroke. TECHNIQUE: Multiple contiguous axial images were obtained through the brain without the use of intravenous contrast. Auto Exposure Controls were utilized during the CT exam to meet ALARA standards for radiation dose reduction. INDICATION: Stroke, neuro deficit COMPARISON: None available FINDINGS: No intracranial hemorrhage. No intracranial mass, mass effect, midline shift, herniation, hydrocephalus, or extra-axial fluid collection. No definite CT evidence of an acute ischemic infarction. The visualized orbits are unremarkable. The visualized paranasal sinuses are clear. The calvarium and extracalvarial soft tissues are unremarkable. IMPRESSION: Unremarkable examination without acute intracranial abnormality. Should symptoms persist or there remains clinical concern, further evaluation with MRI of the brain would be recommended. Agree with preliminary interpretation. Dictated by: Dictated on workstation # [id number]
== END 2020-08-05 02:12 | disposition home or self-care (01) ==
LOC: EDUNIT# 00:19 → ER 00:22
DX: R07.9 Chest pain, unspecified (principal); R20.2 Paresthesia of skin; I10 Essential (primary) hypertension; F41.9 Anxiety disorder, unspecified; Z87.891 Personal history of nicotine dependence; Z77.22 Contact with and (suspected) exposure to environmental tobacco smoke (acute) (chronic); Z80.49 Family history of malignant neoplasm of other genital organs; Z80.8 Family history of malignant neoplasm of other organs or systems
CPT/HCPCS: 70450; 71045; 80053; 80306; 81000; 82150; 82550; 82553; 83690; 83735; 83874; 83880; 84443; 84484; 84703 ×2; 85025; 85610; 85652; 85730; 93005; 93041; G0480; 36415; 80320

== ENCOUNTER 2020-10-08 02:54 | Emergency (ER) | payer BC ==
[2020-10-08] MEDS ORDERED: LACTATED RINGERS 1,000 ML IV ONE (03:15)
[2020-10-08 03:19] LABS: BILIRUBIN,URINE NEGATIVE (NEGATIVE); CLARITY,URINE SL CLOUDY; COLOR,URINE YELLOW; GLUCOSE, URINE (UA) NEGATIVE (NEGATIVE); KETONES,URINE NEGATIVE (NEGATIVE); LEUKOCYTE ESTERASE ,URINE NEGATIVE (NEGATIVE); NITRITE,URINE NEGATIVE (NEGATIVE); PROTEIN,URINE NEGATIVE (NEGATIVE)
--- NOTE | 2020-10-08 03:22 | ED General ---
General Stated Complaint: OVERDOSE;VOMITING;HIGH BP;SWEATING;HIGH HR Source of Information: Patient, Old Records History of Present Illness Date Seen by Provider: Oct 08, 2020 Time Seen by Provider: 03:00 Initial Comments PT ARRIVES VIA POV FROM HOME PT STATES SHE IS HERE FOR HELP WITH HER DRUG ADDICTION LONG HISTORY OF DRUG ADDICTION--HISTORY OF IV METH USE AND COCAINE USE, WELL PRESCRIPTION DRUG USE HAS BEEN IN TREATMENT PROGRAMS 7 TIMES. LAST TIME WAS IN 2012 IN [place]. STATES SHE HAS BEEN ABUSING PRESCRIPTION DRUGS FOR YEARS--IS CURRENTLY ABUSING PHENTERMINE--TAKES 5 PILLS A DAY. STATES SHE HAS BEEN GETTING PRESCRIPTIONS FROM DR. BROCK, AND HAS AN APPOINTMENT THIS MORNING FOR A REFILL ALSO HAS BEEN ABUSING HYDROCODONE--NOT PRESCRIBED TO HER. LAST TOOK ABOUT 5 HYDROCODONE 10 MG TABLETS 2 DAYS AGO. PT STATES SHE USED COCAINE YESTERDAY/Wednesday10/07/20--SNORTED IT. C/O ELEVATED HEART RATE, ELEVATED BP AND HAS BEEN SWEATING, AND HAVING NAUSEA AND THEN MADE HERSELF VOMIT ONE TIME, HOPING IT WOULD MAKE HER FEEL BETTER. PT IS NOT SUICIDAL, STATES SHE IS AFRAID SHE IS GOING TO KILL HERSELF WITH HER ADDICTIONS AND DOES NOT WANT TO . HAS NOT DISCUSSED THIS WITH DR. BROCK . PT WAS IN [place] 1 [place]/2 WEE[place] A[place] PT WAS EXPOSED TO COVID-19 AT WORK IN THE LAST 1 1/2 WEEKS--CO-WORKER HAS IT. PT HAS BEEN HAVING COLD SYMPTOMS THE LAST WEEK. STATES SHE TESTED NEGATIVE 1 WEEK AGO. STATES SHE WORKED FROM HOME YESTERDAY/WEDNESDAY. WORKS AT LOCAL [employer]. LMP 1 1/2 WEEKS AGO. NORMAL. NO CONTROL PCP: DR. BROCK Allergies and Home Medications Allergies Coded Allergies: No Known Drug Allergies (Unverified , 10/31/15) Home Medications Cefdinir 300 Mg Capsule, 300 MG PO BID Prescribed by: KRANTHI CALLES on 12/10/1658 Diclofenac Sodium 50 Mg Tablet.dr, 50 MG PO Q6H PRN for FLANK Prescribed by: KRANTHI CALLES on 12/10/1658 Patient Home Medication List Home Medication List Reviewed: Yes Review of Systems Review of Systems Constitutional: see HPI, diaphoresis EENTM: no symptoms reported Respiratory: no symptoms reported Cardiovascular: see HPI, palpitations Gastrointestinal: see HPI, nausea, vomiting Genitourinary: no symptoms reported LMP: Sep 28, 2020 Musculoskeletal: no symptoms reported Skin: no symptoms reported Psychiatric/Neurological: See HPI, Anxiety Hematologic/Lymphatic: No Symptoms Reported Immunological/Allergic: no symptoms reported Past Vydrnpo-Kulwto-Ieuhdq Hx Past Med/Social Hx: Reviewed and Corrections made Patient Social History Alcohol Use: Occasionally Uses Alcohol Beverage of Choice: Beer Drug of Choice: SMOKED METH & THC,SNORTED COCAINE, NONE X 8 YEARS. +IV METH USE. RX DRUG AB Smoking Status: Current Everyday Smoker Type Used: Cigarettes, Electronic/Vapor 2nd Hand Smoke Exposure: Yes Recent Hopitalizations: No Immunizations Up To Date Tetanus Booster (TDap): Unknown PED Vaccines UTD: Yes Seasonal Allergies Seasonal Allergies: No Past Medical History Surgeries: Yes (HERNIA REPAIR) Abdominal Respiratory: No Cardiac: Yes Hypertension Neurological: No Reproductive Disorders: No Female Reproductive Disorders: Denies HIV/AIDS: No Genitourinary: No Gastrointestinal: Yes Gastroesophageal Reflux Musculoskeletal: No Endocrine: No HEENT: No Loss of Vision: Denies Hearing Impairment: Denies Cancer: No Psychosocial: Yes (SUBSTANCE ABUSE) Anxiety, Depression Integumentary: No Blood Disorders: No Adverse Reaction/Blood Tranf: No Family Medical History Diabetes mellitus 19 MOTHER, Onset:40's - 50 FH: ovarian cancer in first degree relative 19 MOTHER, Onset:30's - 40 Hypercholesterolemia 19 MOTHER, Onset:40's - 50 Meningitis 19 FATHER, Onset:50's - 60 Pancreatitis 19 MOTHER, Onset:40's - 50 Pituitary disease 19 MOTHER, Onset:40's - 50 Cancer, Diabetes, GI Disease SOCIAL HISTORY: -ETOH--OCCASIONAL USE -DRUGS--+ IV METH USE, ALSO SMOKES IT. SNORTS COCAINE. RX DRUG ABUSE--PHENTERMINE, HYDROCODONE. THC USE. 7 TREATMENT PROGRAMS, LAST ONE IN 2012 IN [place] -SMOKES CIGARETTES PLUS VAPES Physical Exam Vital Signs Vital Signs - First Documented 10/08/20 03:23 Temp 36.2 Pulse 122 Resp 18 B/P (MAP) 112/99 (103) Pulse Ox 98 Capillary Refill : Height, Weight, BMI Height: 5'8.00" Weight: 160lbs. 0oz. 72.489377fw; 30.00 BMI Method:Stated General Appearance: No Apparent Distress, WD/WN, Anxious, Other (CONSTANT SNIFFING, TEARFUL AT TIMES, ANXIOUS) HEENT: PERRL/EOMI, Normal ENT Inspection Neck: Normal Inspection Respiratory: Normal Breath Sounds, No Accessory Muscle Use, No Respiratory Distress Cardiovascular: No Edema, No JVD, No Murmur, Normal Peripheral Pulses, Tachycardia Gastrointestinal: Non Tender, Soft Back: No CVA Tenderness Neurologic/Psychiatric: Alert, Oriented x3, No Motor/Sensory Deficits, plant specialist II- XII Norm as Tested, Other (ANXIOUS) Skin: Normal Color, Warm/Dry Progress/Results/Core Measures Suspected Sepsis SIRS Temperature: Pulse: Respiratory Rate: Laboratory Tests 10/08/20 02:20: White Blood Count 12.4H Blood Pressure / Mean: Laboratory Tests 10/08/20 02:20: Creatinine 0.80, INR Comment 0.9, Platelet Count 393, Total Bilirubin 0.3 Results/Orders Lab Results Laboratory Tests Test 10/08/20 02:20 10/08/20 03:07 10/08/20 03:22 Range/Units White Blood Count 12.4 H 4.3-11.0 10^3/uL Red Blood Count 4.57 3.80-5.11 10^6/uL Hemoglobin 13.7 11.5-16.0 g/dL Hematocrit 41 35-52 % Mean Corpuscular Volume 90 80-99 fL Mean Corpuscular Hemoglobin 30 25-34 pg Mean Corpuscular Hemoglobin Concent 33 32-36 g/dL Red Cell Distribution Width 12.3 10.0-14.5 % Platelet Count 393 130-400 10^3/uL Mean Platelet Volume 10.2 9.0-12.2 fL Immature Granulocyte % (Auto) 0 % Neutrophils (%) (Auto) 69 42-75 % Lymphocytes (%) (Auto) 24 12-44 % Monocytes (%) (Auto) 6 0-12 % Eosinophils (%) (Auto) 1 0-10 % Basophils (%) (Auto) 1 0-10 % Neutrophils # (Auto) 8.5 H 1.8-7.8 10^3/uL Lymphocytes # (Auto) 3.0 1.0-4.0 10^3/uL Monocytes # (Auto) 0.8 0.0-1.0 10^3/uL Eosinophils # (Auto) 0.1 0.0-0.3 10^3/uL Basophils # (Auto) 0.1 0.0-0.1 10^3/uL Immature Granulocyte # (Auto) 0.0 0.0-0.1 10^3/uL Prothrombin Time 12.6 12.2-14.7 SEC INR Comment 0.9 0.8-1.4 Activated Partial Thromboplast Time 29 24-35 SEC Sodium Level 139 135-145 MMOL/L Potassium Level 3.8 3.6-5.0 MMOL/L Chloride Level 105 98-107 MMOL/L Carbon Dioxide Level 23 21-32 MMOL/L Anion Gap 11 5-14 MMOL/L Blood Urea Nitrogen 10 7-18 MG/DL Creatinine 0.80 0.60-1.30 MG/DL Estimat Glomerular Filtration Rate > 60 BUN/Creatinine Ratio 13 Glucose Level 114 H 70-105 MG/DL Calcium Level 9.7 8.5-10.1 MG/DL Corrected Calcium 9.4 8.5-10.1 MG/DL Magnesium Level 1.9 1.6-2.4 MG/DL Total Bilirubin 0.3 0.1-1.0 MG/DL Aspartate Amino Transf (AST/SGOT) 35 H 5-34 U/L Alanine Aminotransferase (ALT/SGPT) 33 0-55 U/L Alkaline Phosphatase 90 40-136 U/L Troponin I < 0.028 <0.028 NG/ML Total Protein 7.5 6.4-8.2 GM/DL Albumin 4.4 3.2-4.5 GM/DL TSH Harper Testing 0.85 0.35-4.94 UIU/ML Acetaminophen Level < 10 L 10-30 UG/ML Serum Alcohol < 10 <10 MG/DL Urine Color YELLOW Urine Clarity SL CLOUDY Urine pH 6.0 5-9 Urine Specific [place] 1.020 1.016-1.022 Urine Protein NEGATIVE NEGATIVE Urine Glucose (UA) NEGATIVE NEGATIVE Urine Ketones NEGATIVE NEGATIVE Urine Nitrite NEGATIVE NEGATIVE Urine Bilirubin NEGATIVE NEGATIVE Urine Urobilinogen 0.2 < = 1.0 MG/DL Urine Leukocyte Esterase NEGATIVE NEGATIVE Urine RBC (Auto) NEGATIVE NEGATIVE Urine RBC NONE /HPF Urine WBC NONE /HPF Urine Squamous Epithelial Cells 10-25 H /HPF Urine Crystals PRESENT H /LPF Urine Amorphous Sediment RARE ASIA URATES H /LPF Urine Bacteria TRACE /HPF Urine Casts NONE /LPF Urine Mucus NEGATIVE /LPF Urine Culture Indicated NO Urine Opiates Screen POSITIVE H NEGATIVE Urine Oxycodone Screen NEGATIVE NEGATIVE Urine Methadone Screen NEGATIVE NEGATIVE Urine Propoxyphene Screen NEGATIVE NEGATIVE Urine Barbiturates Screen NEGATIVE NEGATIVE Ur Tricyclic Antidepressants Screen NEGATIVE NEGATIVE Urine Phencyclidine Screen NEGATIVE NEGATIVE Urine Amphetamines Screen NEGATIVE NEGATIVE Urine Methamphetamines Screen NEGATIVE NEGATIVE Urine Benzodiazepines Screen NEGATIVE NEGATIVE Urine Cocaine Screen POSITIVE H NEGATIVE Urine Cannabinoids Screen NEGATIVE NEGATIVE Coronavirus 2019 (GUERRERO) Negative Negative Micro Results Microbiology 10/08/20 Influenza Types A,B Antigen (VIRI) - Final, Complete My Orders Orders - CLAIRE KEE DO Ed Iv/Invasive Line Start (10/08/20 03:02) Urine Bedside (10/08/20 03:02) Ekg Tracing (10/08/20 03:02) Monitor-Rhythm Ecg Trace Only (10/08/20 03:02) Acetaminophen (10/08/20 03:02) Alcohol (10/08/20 03:02) Cbc With Automated Diff (10/08/20 03:02) Comprehensive Metabolic Panel (10/08/20 03:02) Drug Screen Stat (Urine) (10/08/20 03:02) Magnesium (10/08/20 03:02) Protime With Inr (10/08/20 03:02) Partial Thromboplastin Time (10/08/20 03:02) Thyroid Analyzer (10/08/20 03:02) Ua Culture If Indicated (10/08/20 03:02) Troponin I (10/08/20 03:02) Ed Iv/Invasive Line Start (10/08/20 03:02) Lactated Ringers (Lr 1000 Ml Iv Solution (10/08/20 03:15) Influenza A And B Antigens (10/08/20 03:15) Coronavirus Sars-Cov-2 So 2018 (10/08/20 03:15) Covid 19 Inhouse Test (10/08/20 03:15) Acetaminophen Tablet (Tylenol Tablet) (10/08/20 03:45) Medications Given in ED Current Medications Medications Dose Ordered Sig/Heri Route Start Time Stop Time Status Last Admin Dose Admin Acetaminophen 1,000 mg ONCE ONCE PO 10/08/20 03:45 10/08/20 03:46 DC 10/08/20 03:47 1,000 MG Lactated Ringer's 1,000 ml @ 0 mls/hr Q0M ONCE IV 10/08/20 03:15 10/08/20 03:16 DC 10/08/20 03:37 1,000 MLS/HR Vital Signs/I&O 10/08/20 03:23 Temp 36.2 Pulse 122 Resp 18 B/P (MAP) 112/99 (103) Pulse Ox 98 Capillary Refill : Progress Note : Progress Note PLACED IN ISOLATION ROOM PPE WORN AFTER PT ADMITTED TO RECENT EXPOSURE, AND HAVING COLD SYMPTOMS FOR THE LAST WEEK COVID-19 TESTING PERFORMED GIVEN IV FLUIDS PT CALMER DURING COURSE OF ER STAY STATES SHE FEELS BETTER AT DISMISSAL PT STATES SHE WOULD LIKE TO GO HOME AND FOLLOW UP WITH DR. BROCK THIS MORNING SCHEDULED ALSO STATES SHE IS SCHEDULED TO SEE DR. ADKINS 10/14/20 FOR POSSIBLE MAITE LUATION FOR HYSTERECTOMY. INFORMED HER OF LOCAL ADDICTION TREATMENT CENTERS, INCLUDING [facility] OUTPATIENT [facility] T[facility]MENT ECG Initial ECG Impression Date: Oct 08, 2020 Initial ECG Impression Time: 03:12 Initial ECG Rate: 107 Initial ECG Rhythm: S.Tach Departure Impression Primary Impression: Substance abuse Additional Impression: Person under investigation for COVID-19 Disposition: 01 HOME, SELF-CARE Condition: Stable Departure-Patient Inst. Referrals: ADITYA BROCK MD (PCP/Family) Primary Care Physician Patient Instructions: Drug Abuse and Drug Addiction (DC), Prescription Drug M isuse, Drug Abuse Treatment, Opioid Use Disorder, Cocaine Use Disorder, Preventing the Spread of an Infectious Disease, Coronavirus Disease 2019 (COVID- 19) Overview Add. Discharge Instructions: HOME, REST LOTS OF CLEAR LIQUIDS--WATER, BROTH, JELLO, GATORADE BLAND DIET TODAY--NO SPICY, GREASY/HIGH FAT OR ACIDIC FOOD OR DRINKS FOLLOW UP WITH DR. BROCK TODAY SCHEDULED YOU MAY CONTACT [facility] OR [facility] FOR FURTHER CARE EXCEPT FOR NECESSARY [place] APPOINTMENTS, QUARANTINE YOURSELF AND ALL CLOSE CONTACTS FOR 2 WEEKS OR UNTIL CLEARED BY OR HEALTH DEPT. YOU MAY NEED TO BE RE-TESTED FOR COVID-19 IN A FEW DAYS IF YOU ARE STILL HAVING SYMPTOMS CLAIRE KEE DO Oct 08, 2020 03:22
[2020-10-08 03:26] LABS: BACTERIA,URINE TRACE /HPF
[2020-10-08 03:27] LABS: AMORPHOUS SEDIMENT,UR RARE AMOR URATES /LPF
[2020-10-08 03:28] LABS: AMPHETAMINE SCREEN, URINE NEGATIVE (NEGATIVE); BARBITURATE SCREEN URINE NEGATIVE (NEGATIVE); BENZODIAZEPINES SCREEN URINE NEGATIVE (NEGATIVE); CANNABINOID SCREEN, URINE NEGATIVE (NEGATIVE); COCAINE SCREEN URINE POSITIVE (NEGATIVE); METHAMPHETAMINE SCREEN URINE S NEGATIVE (NEGATIVE); OPIATE SCREEN URINE POSITIVE (NEGATIVE)
[2020-10-08 03:29] LABS: METHADONE STAT NEGATIVE (NEGATIVE); OXYCODONE STAT NEGATIVE (NEGATIVE); PROPOXYPHENE STAT NEGATIVE (NEGATIVE); TRICYCLIC ANTIDEPRESSANTS SCRE NEGATIVE (NEGATIVE)
[2020-10-08] MEDS ORDERED: ACETAMINOPHEN 500 MG TAB (TYLENOL) PO ONE (03:45)
[2020-10-08 04:04] LABS: BASOPHILS # (AUTO) 0.1 10^3/uL (0.0-0.1); BASOPHILS % (AUTO) 1 % (0-10); EOSINOPHILS # (AUTO) 0.1 10^3/uL (0.0-0.3); EOSINOPHILS % (AUTO) 1 % (0-10); HEMATOCRIT 41 % (35-52); HEMOGLOBIN 13.7 g/dL (11.5-16.0); LYMPHOCYTES % (AUTO) 24 % (12-44); MEAN CORPUSCULAR HEMOGLOBIN 30 pg (25-34); MEAN CORPUSCULAR HGB CONC 33 g/dL (32-36); MEAN CORPUSCULAR VOLUME 90 fL (80-99); MEAN PLATELET VOLUME 10.2 fL (9.0-12.2); MONOCYTES # (AUTO) 0.8 10^3/uL (0.0-1.0); MONOCYTES % (AUTO) 6 % (0-12); NEUTROPHILS # (AUTO) 8.5 10^3/uL (1.8-7.8); NEUTROPHILS % (AUTO) 69 % (42-75); PLATELET COUNT 393 10^3/uL (130-400); WHITE BLOOD COUNT 12.4 10^3/uL (4.3-11.0)
[2020-10-08 04:19] LABS: INR 0.9 (0.8-1.4); PROTHROMBIN TIME PATIENT 12.6 SEC (12.2-14.7)
[2020-10-08 04:26] LABS: ALANINE AMINOTRANSFERASE 33 U/L (0-55); ALBUMIN 4.4 GM/DL (3.2-4.5); ALKALINE PHOSPHATASE 90 U/L (40-136); BILIRUBIN,TOTAL 0.3 MG/DL (0.1-1.0); BUN/CREATININE RATIO 13; CALCIUM 9.7 MG/DL (8.5-10.1); CARBON DIOXIDE 23 MMOL/L (21-32); CHLORIDE 105 MMOL/L (98-107); GFR ESTIMATED > 60; GLUCOSE 114 MG/DL (70-105); MAGNESIUM 1.9 MG/DL (1.6-2.4); POTASSIUM 3.8 MMOL/L (3.6-5.0); SODIUM 139 MMOL/L (135-145); TOTAL PROTEIN 7.5 GM/DL (6.4-8.2)
[2020-10-08 04:27] LABS: ACETAMINOPHEN < 10 UG/ML (10-30)
[2020-10-08 04:46] LABS: TSH (THYROID ANALYZER) 0.85 UIU/ML (0.35-4.94)
[2020-10-08 04:58] VITALS: BP 152/107
== END 2020-10-08 04:58 | disposition home or self-care (01) ==
LOC: EDUNIT# 02:54 → ER 02:56
DX: F55.8 Abuse of other non-psychoactive substances (principal); F11.10 Opioid abuse, uncomplicated; F17.210 Nicotine dependence, cigarettes, uncomplicated; F17.290 Nicotine dependence, other tobacco product, uncomplicated; Z20.822 Contact with and (suspected) exposure to COVID-19; Z83.3 Family history of diabetes mellitus; Z80.41 Family history of malignant neoplasm of ovary
CPT/HCPCS: 80053; 80306; 81000; 83735; 84443; 84484; 84703; 85025; 85610; 85730; 87804; 93005; 93041; G0480 ×2; U0002; 36415; 80320; 80329; 87635

== ENCOUNTER 2020-12-10 13:17 | Observation (INO) | payer BC ==
[~2020-12-10] VITALS: Ht 172.7 cm; Wt 85.0 kg
[2020-12-10] MEDS ORDERED: NS IV 1000 ML 1,000 ML IV ONE (13:45)
[2020-12-10 13:52] LABS: ALBUMIN 4.6 GM/DL (3.2-4.5); CHLORIDE 103 MMOL/L (98-107); POTASSIUM 3.4 MMOL/L (3.6-5.0); SODIUM 138 MMOL/L (135-145)
[2020-12-10 13:53] LABS: BASOPHILS # (AUTO) 0.1 10^3/uL (0.0-0.1); BASOPHILS % (AUTO) 1 % (0-10); CALCIUM 9.5 MG/DL (8.5-10.1); EOSINOPHILS # (AUTO) 0.4 10^3/uL (0.0-0.3); EOSINOPHILS % (AUTO) 3 % (0-10); HEMATOCRIT 40 % (35-52); HEMOGLOBIN 13.5 g/dL (11.5-16.0); LYMPHOCYTES # (AUTO) 5.3 10^3/uL (1.0-4.0); LYMPHOCYTES % (AUTO) 43 % (12-44); MEAN CORPUSCULAR HEMOGLOBIN 30 pg (25-34); MEAN CORPUSCULAR HGB CONC 34 g/dL (32-36); MEAN CORPUSCULAR VOLUME 89 fL (80-99); MEAN PLATELET VOLUME 10.1 fL (9.0-12.2); MONOCYTES # (AUTO) 1.2 10^3/uL (0.0-1.0); MONOCYTES % (AUTO) 10 % (0-12); NEUTROPHILS # (AUTO) 5.4 10^3/uL (1.8-7.8); NEUTROPHILS % (AUTO) 44 % (42-75); PLATELET COUNT 391 10^3/uL (130-400); WHITE BLOOD COUNT 12.3 10^3/uL (4.3-11.0)
[2020-12-10 13:55] LABS: GLUCOSE 82 MG/DL (70-105); TOTAL PROTEIN 7.8 GM/DL (6.4-8.2)
[2020-12-10 13:56] LABS: BILIRUBIN,TOTAL 0.6 MG/DL (0.1-1.0); CARBON DIOXIDE 26 MMOL/L (21-32)
[2020-12-10 13:58] LABS: ALKALINE PHOSPHATASE 75 U/L (40-136); CREATININE SERUM 0.79 MG/DL (0.60-1.30); GFR ESTIMATED > 60
[2020-12-10 14:00] LABS: BUN/CREATININE RATIO 15
[2020-12-10 14:01] LABS: ALANINE AMINOTRANSFERASE 17 U/L (0-55); SALICYLATE < 5.0 MG/DL (5.0-20.0)
[2020-12-10 14:02] LABS: ACETAMINOPHEN < 10 UG/ML (10-30); CREATINE KINASE 129 U/L (29-168)
--- NOTE | 2020-12-10 14:12 | ED Psychosocial ---
General Chief Complaint: Substance Abuse Stated Complaint: OD- TRAMADOL Nursing Triage Note: PT TO RM 6 BY WHEELCHAIR WITH COMPLAINT OF DRUG OVERDOSE. STATES SHE TOOK APPROX 6 0.25MG TRAMMADOL THAT WERE PRESCRIBED BY THE VET. STATES ALSO TOOK AN ECTASY PILL THIS MORNING. STATES SHE WAS NOT TRYING TO KILL HERSELF, BUT WANTED TO "FEEL NUMB". STATES SHE IS UNDER A LOT OF STRESS WITH HER JOB. Source: patient Exam Limitations: no limitations History of Present Illness Date Seen by Provider: December 10, 2020 Time Seen by Provider: 13:45 Initial Comments Here with report of drug overdose. Patient states it was not intentional to harm herself that she was just trying to get numb. She did take up to 20 of 50 mg veterinary tramadol as well as has been using ecstasy over the past several days. She states that she was just trying to be numb and not trying to harm her self. She denies previous suicide attempts. She does admit to previous drug abuse 10 years ago with methamphetamine and did have episode where she tried cocaine a few months ago. Reports that she is under a lot of stress as she lives here in her 's and over the director broadcast. She was clean for many years while living in [place]. Does have strong support with her sister here. Denies injury or other concerns. Denies recent contact with COVID-19 or upper respiratory illness. Denies other concerns. Timing/Duration: this morning (Self-reported overdose on tramadol) Severity: moderate Associated Symptoms: anxiety, impaired concentration, ingestion Allergies and Home Medications Allergies Coded Allergies: No Known Drug Allergies (Unverified , 10/31/15) Home Medications Cefdinir 300 Mg Capsule, 300 MG PO BID Prescribed by: KRANTHI CALLES on 12/10/1658 Diclofenac Sodium 50 Mg Tablet.dr, 50 MG PO Q6H PRN for FLANK Prescribed by: KRANTHI CALLES on 12/10/1658 Patient Home Medication List Home Medication List Reviewed: Yes Review of Systems Constitutional: No chills, No fever EENTM: No nose congestion, No throat pain Respiratory: No cough, No short of breath Cardiovascular: No chest pain, No edema Gastrointestinal: No abdominal pain, No nausea, No vomiting Genitourinary: no symptoms reported : No Musculoskeletal: No joint pain, No muscle pain Skin: No change in color, No lesions Psychiatric/Neurological: Anxiety, Depressed, Emotional Problems All Other Systems Reviewed Negative Unless Noted: Yes Past Qqepsvj-Glxjik-Tyaymm Hx Past Med/Social Hx: Reviewed Nursing Past Med/Soc Hx Patient Social History Alcohol Use: Occasionally Uses Number of Drinks Today: AA Alcohol Beverage of Choice: Beer Drug of Choice: SMOKED METH & THC,SNORTED COCAINE, NONE X 8 YEARS. +IV METH USE. RX DRUG AB Smoking Status: Current Everyday Smoker Type Used: Cigarettes, Electronic/Vapor 2nd Hand Smoke Exposure: Yes Recent Infectious Disease Expo: No Recent Hopitalizations: No Immunizations Up To Date Tetanus Booster (TDap): Less than 5yrs PED Vaccines UTD: Yes Seasonal Allergies Seasonal Allergies: No Past Medical History Surgeries: Yes (HERNIA REPAIR) Abdominal Respiratory: No Cardiac: Yes Hypertension Neurological: No Reproductive Disorders: No Female Reproductive Disorders: Denies HIV/AIDS: No Genitourinary: No Gastrointestinal: Yes Gastroesophageal Reflux Musculoskeletal: No Endocrine: No HEENT: No Loss of Vision: Denies Hearing Impairment: Denies Cancer: No Psychosocial: Yes (SUBSTANCE ABUSE) Anxiety, Depression Integumentary: No Blood Disorders: No Adverse Reaction/Blood Tranf: No Family Medical History Reviewed Nursing Family Hx Diabetes mellitus 19 MOTHER, Onset:40's - 50 FH: ovarian cancer in first degree relative 19 MOTHER, Onset:30's - 40 Hypercholesterolemia 19 MOTHER, Onset:40's - 50 Meningitis 19 FATHER, Onset:50's - 60 Pancreatitis 19 MOTHER, Onset:40's - 50 Pituitary disease 19 MOTHER, Onset:40's - 50 Cancer, Diabetes, GI Disease SOCIAL HISTORY: -ETOH--OCCASIONAL USE -DRUGS--+ IV METH USE, ALSO SMOKES IT. SNORTS COCAINE. RX DRUG ABUSE--PHENTERMINE, HYDROCODONE. THC USE. 7 TREATMENT PROGRAMS, LAST ONE IN 2013 IN [place] -SMOKES CIGARETTES PLUS VAPES Physical Exam Vital Signs - First Documented 12/10/20 13:24 Temp 36.5 Pulse 125 Resp 25 B/P (MAP) 170/126 (141) Pulse Ox 97 O2 Delivery Room Air Capillary Refill : Less Than 3 Seconds Height, Weight, BMI Height: 5'8.00" Weight: 160lbs. 0oz. 72.244222ti; 28.00 BMI Method:Stated General Appearance: WD/WN, mild distress HEENT: PERRL/EOMI, pharynx normal Neck: full range of motion, supple Respiratory: lungs clear, normal breath sounds Cardiovascular: no murmur, tachycardia Gastrointestinal: non tender, soft Extremities: non-tender, normal inspection Neurologic/Psychiatric: alert, oriented x 3 Appearance/Memory: appropriate appearance, appropriate insight, neat Behavior/Eye Contact: cooperative, good eye contact, normal speech Thoughts/Hallucinations: normal thought pattern, no apparent hallucination Skin: normal color, warm/dry Progress/Results/Core Measures Results/Orders Lab Results Laboratory Tests Test 12/10/20 13:28 12/10/20 14:12 Range/Units White Blood Count 12.3 H 4.3-11.0 10^3/uL Red Blood Count 4.50 3.80-5.11 10^6/uL Hemoglobin 13.5 11.5-16.0 g/dL Hematocrit 40 35-52 % Mean Corpuscular Volume 89 80-99 fL Mean Corpuscular Hemoglobin 30 25-34 pg Mean Corpuscular Hemoglobin Concent 34 32-36 g/dL Red Cell Distribution Width 12.4 10.0-14.5 % Platelet Count 391 130-400 10^3/uL Mean Platelet Volume 10.1 9.0-12.2 fL Immature Granulocyte % (Auto) 0 % Neutrophils (%) (Auto) 44 42-75 % Lymphocytes (%) (Auto) 43 12-44 % Monocytes (%) (Auto) 10 0-12 % Eosinophils (%) (Auto) 3 0-10 % Basophils (%) (Auto) 1 0-10 % Neutrophils # (Auto) 5.4 1.8-7.8 10^3/uL Lymphocytes # (Auto) 5.3 H 1.0-4.0 10^3/uL Monocytes # (Auto) 1.2 H 0.0-1.0 10^3/uL Eosinophils # (Auto) 0.4 H 0.0-0.3 10^3/uL Basophils # (Auto) 0.1 0.0-0.1 10^3/uL Immature Granulocyte # (Auto) 0.0 0.0-0.1 10^3/uL Sodium Level 138 135-145 MMOL/L Potassium Level 3.4 L 3.6-5.0 MMOL/L Chloride Level 103 98-107 MMOL/L Carbon Dioxide Level 26 21-32 MMOL/L Anion Gap 9 5-14 MMOL/L Blood Urea Nitrogen 12 7-18 MG/DL Creatinine 0.79 0.60-1.30 MG/DL Estimat Glomerular Filtration Rate > 60 BUN/Creatinine Ratio 15 Glucose Level 82 70-105 MG/DL Calcium Level 9.5 8.5-10.1 MG/DL Corrected Calcium 8.5-10.1 MG/DL Total Bilirubin 0.6 0.1-1.0 MG/DL Aspartate Amino Transf (AST/SGOT) 19 5-34 U/L Alanine Aminotransferase (ALT/SGPT) 17 0-55 U/L Alkaline Phosphatase 75 40-136 U/L Total Creatine Kinase 129 29-168 U/L Total Protein 7.8 6.4-8.2 GM/DL Albumin 4.6 H 3.2-4.5 GM/DL Serum Test, Qualitative NEGATIVE NEGATIVE Salicylates Level < 5.0 L 5.0-20.0 MG/DL Acetaminophen Level < 10 L 10-30 UG/ML Serum Alcohol < 10 <10 MG/DL Urine Color YELLOW Urine Clarity CLEAR Urine pH 6.0 5-9 Urine Specific [place] >=1.030 1.016-1.022 Urine Protein NEGATIVE NEGATIVE Urine Glucose (UA) NEGATIVE NEGATIVE Urine Ketones NEGATIVE NEGATIVE Urine Nitrite NEGATIVE NEGATIVE Urine Bilirubin NEGATIVE NEGATIVE Urine Urobilinogen 0.2 < = 1.0 MG/DL Urine Leukocyte Esterase NEGATIVE NEGATIVE Urine RBC (Auto) NEGATIVE NEGATIVE Urine RBC NONE /HPF Urine WBC 2-5 /HPF Urine Squamous Epithelial Cells 10-25 H /HPF Urine Renal Epithelial Cells 0-2 /HPF Urine Crystals NONE /LPF Urine Bacteria FEW H /HPF Urine Casts NONE /LPF Urine Mucus NEGATIVE /LPF Urine Culture Indicated NO Urine Opiates Screen NEGATIVE NEGATIVE Urine Oxycodone Screen NEGATIVE NEGATIVE Urine Methadone Screen NEGATIVE NEGATIVE Urine Propoxyphene Screen NEGATIVE NEGATIVE Urine Barbiturates Screen NEGATIVE NEGATIVE Ur Tricyclic Antidepressants Screen NEGATIVE NEGATIVE Urine Phencyclidine Screen NEGATIVE NEGATIVE Urine Amphetamines Screen POSITIVE H NEGATIVE Urine Methamphetamines Screen POSITIVE H NEGATIVE Urine Benzodiazepines Screen POSITIVE H NEGATIVE Urine Cocaine Screen NEGATIVE NEGATIVE Urine Cannabinoids Screen NEGATIVE NEGATIVE My Orders Orders - MARY DOWD MD Ua Culture If Indicated (12/10/20 13:43) Cbc With Automated Diff (12/10/20 13:43) Comprehensive Metabolic Panel (12/10/20 13:43) Alcohol (12/10/20 13:43) Drug Screen Stat (Urine) (12/10/20 13:43) Acetaminophen (12/10/20 13:43) Salicylate (12/10/20 13:43) Ekg Tracing (12/10/20 13:43) Ed Iv/Invasive Line Start (12/10/20 13:43) Monitor-Rhythm Ecg Trace Only (12/10/20 13:43) Bh Status Checks/Observation Q15M (12/10/20 13:43) Ed Iv/Invasive Line Start (12/10/20 13:43) Ns Iv 1000 Ml (Sodium Chloride 0.9%) (12/10/20 13:45) Creatine Kinase (12/10/20 13:43) Hcg,Qualitative Serum (12/10/20 13:43) Medications Given in ED Current Medications Medications Dose Ordered Sig/Heri Route Start Time Stop Time Status Last Admin Dose Admin Sodium Chloride 1,000 ml @ 0 mls/hr Q0M ONCE IV 12/10/20 13:45 12/10/20 13:46 DC 12/10/20 14:01 0 MLS/HR Vital Signs/I&O 12/10/20 13:24 Temp 36.5 Pulse 125 Resp 25 B/P (MAP) 170/126 (141) Pulse Ox 97 O2 Delivery Room Air Blood Pressure Mean: 141 Progress Progress Note : Progress Note Seen and evaluated. IV, labs, UA, EKG, normal saline 1 L bolus ordered. Poison control contacted. Recommend supportive care, minimum of 10-hour monitoring, benzodiazepines for seizures and evaluate for EKG changes. This was ordered. Monitor patient. 1405: Patient will require admission due to the number of tramadol as well as general symptoms. Patient does follow with Dr. Doe and I will make contact with her. Monitor patient. 1446: Dr. Solis page. Patient to be admitted to the ICU for continuing observation. Seizure precautions. Patient agrees to plan. 1515: Patient is not in order patient and is actually a [facility] patient. I did discuss the case with Dr. Garcia who is on-call for [facility]. She accepts patient for admission, observation status to the ICU. Initial ECG Impression Date: December 10, 2020 Initial ECG Impression Time: 13:41 Initial ECG Rate: 84 Initial ECG Rhythm: Normal Sinus Comment Sinus rhythm with normal axis. No evidence of ST elevation [place]. Similar to previous of 10/08/2020. Interpreted by me. Departure Communication (Admissions) Time/Spoke to Admitting Phy: 14:46 Impression Primary Impression: Drug overdose Qualified Codes: T50.901A - Poisoning by unspecified drugs, medicaments and biological substances, accidental (unintentional), initial encounter Disposition: ADMITTED INPATIENT Condition: Stable Admissions Decision to Admit Reason: Admit from ER (General) Decision to Admit/Date: December 10, 2020 Time/Decision to Admit Time: 14:46 Departure-Patient Inst. Referrals: JOCELYNN DOE DO (PCP/Family) Primary Care Physician Patient Instructions: ALCOHOL AND SUBSTANCE ABUSE MARY DOWD MD December 10, 2020 14:12
[2020-12-10 14:19] LABS: BILIRUBIN,URINE NEGATIVE (NEGATIVE); CLARITY,URINE CLEAR; COLOR,URINE YELLOW; GLUCOSE, URINE (UA) NEGATIVE (NEGATIVE); KETONES,URINE NEGATIVE (NEGATIVE); LEUKOCYTE ESTERASE ,URINE NEGATIVE (NEGATIVE); NITRITE,URINE NEGATIVE (NEGATIVE); PROTEIN,URINE NEGATIVE (NEGATIVE)
[2020-12-10 14:34] LABS: BENZODIAZEPINES SCREEN URINE POSITIVE (NEGATIVE); COCAINE SCREEN URINE NEGATIVE (NEGATIVE)
[2020-12-10 14:35] LABS: AMPHETAMINE SCREEN, URINE POSITIVE (NEGATIVE); BARBITURATE SCREEN URINE NEGATIVE (NEGATIVE); CANNABINOID SCREEN, URINE NEGATIVE (NEGATIVE); METHADONE STAT NEGATIVE (NEGATIVE); METHAMPHETAMINE SCREEN URINE S POSITIVE (NEGATIVE); OPIATE SCREEN URINE NEGATIVE (NEGATIVE); OXYCODONE STAT NEGATIVE (NEGATIVE); PROPOXYPHENE STAT NEGATIVE (NEGATIVE); TRICYCLIC ANTIDEPRESSANTS SCRE NEGATIVE (NEGATIVE)
[2020-12-10 14:37] LABS: BACTERIA,URINE FEW /HPF; RENAL EPITHELIAL CELLS,URINE 0-2 /HPF
[2020-12-10 15:40] VITALS: BP 128/100
[2020-12-10] MEDS ORDERED: ONDANSETRON 4 MG/2 ML (SDV) Z0FRAN IVP PRN (17:45)
[2020-12-10] MEDS ORDERED: LORazepam INJ 2 MG/ML (ATIVAN) VIAL IVP PRN (17:45)
[2020-12-10] MEDS: LACTATED RINGERS 1,000 ML IV SCH (17:48)
[2020-12-10] MEDS ORDERED: CATHETER FLUSH 10 ML SYR IV PRN (18:15)
[2020-12-10] MEDS ORDERED: ACETAMINOPHEN 500 MG TAB (TYLENOL) PO PRN (21:00)
[2020-12-11] MEDS: LACTATED RINGERS 1,000 ML IV SCH (00:18)
[2020-12-11 03:55] LABS: BASOPHILS # (AUTO) 0.1 10^3/uL (0.0-0.1); BASOPHILS % (AUTO) 1 % (0-10); EOSINOPHILS # (AUTO) 0.2 10^3/uL (0.0-0.3); EOSINOPHILS % (AUTO) 3 % (0-10); HEMATOCRIT 36 % (35-52); HEMOGLOBIN 11.8 g/dL (11.5-16.0); LYMPHOCYTES % (AUTO) 50 % (12-44); MEAN CORPUSCULAR HEMOGLOBIN 30 pg (25-34); MEAN CORPUSCULAR HGB CONC 33 g/dL (32-36); MEAN CORPUSCULAR VOLUME 91 fL (80-99); MEAN PLATELET VOLUME 10.2 fL (9.0-12.2); MONOCYTES # (AUTO) 0.8 10^3/uL (0.0-1.0); MONOCYTES % (AUTO) 10 % (0-12); NEUTROPHILS % (AUTO) 37 % (42-75); PLATELET COUNT 285 10^3/uL (130-400)
[2020-12-11 04:08] LABS: CHLORIDE 107 MMOL/L (98-107); POTASSIUM 3.7 MMOL/L (3.6-5.0); SODIUM 138 MMOL/L (135-145)
[2020-12-11 04:09] LABS: CALCIUM 8.5 MG/DL (8.5-10.1)
[2020-12-11 04:10] LABS: GLUCOSE 68 MG/DL (70-105)
[2020-12-11 04:11] LABS: CARBON DIOXIDE 24 MMOL/L (21-32)
[2020-12-11 04:13] LABS: CREATININE SERUM 0.73 MG/DL (0.60-1.30); GFR ESTIMATED > 60; PHOSPHORUS 3.9 MG/DL (2.3-4.7)
[2020-12-11 04:14] LABS: BUN/CREATININE RATIO 18
[2020-12-11 04:16] LABS: MAGNESIUM 1.9 MG/DL (1.6-2.4)
--- NOTE | 2020-12-11 04:30 | Pulmonary Consultation ---
IVAN FABIAN MED STUDENT 12/11/20 0430: History of Present Illness History of Present Illness Date Seen by Provider: December 11, 2020 Time Seen by Provider: 04:30 Date of Admission History of Present Illness Patient presented to the ED yesterday with chief complaint of a drug overdose. She reports taking approximately 11 50mg tramodols. She also reports using "meth based ectasy" over the last few days. She was not attempting to commit suicide. She states that she has been stressed a lot at work recently and was attempting to relieve the pressure. She has no prior history of suicide attempts. She has a long history of polysubstance abuse from age 20 onward. She states she used to use methamphetamine for a period of years but claims she's been clean for the past eight years. She admits to trying cocaine and THC in the past as well. She states she's struggled with drug addiction for years and recently has been abusing prescription pills as well, mostly narcotics or really anything she can get her hands on. Currently she is mildly anxious and fidgety. She denies idris cidal/homicidal ideation at this time. Reports feeling anxious/depressed, more so recently. Reports taking prozac for the last two weeks. Allergies and Home Medications Allergies Coded Allergies: No Known Drug Allergies (Unverified , 10/31/15) Home Medications Cefdinir 300 Mg Capsule, 300 MG PO BID Prescribed by: KRANTHI CALLES on 12/10/1658 Diclofenac Sodium 50 Mg Tablet.dr, 50 MG PO Q6H PRN for FLANK Prescribed by: KRANTHI CALLES on 12/10/1658 Past Tvdqwdm-Mfaxxy-Fjaawe Hx Past Med/Social Hx: Reviewed Nursing Past Med/Soc Hx Patient Social History Alcohol Use: Occasionally Uses Number of Drinks Today: AA Alcohol Beverage of Choice: Other (tequilla) Drug of Choice: SMOKED METH & THC,SNORTED COCAINE, NONE X 8 YEARS. +IV METH USE. RX DRUG AB Smoking Status: Current Everyday Smoker Type Used: Electronic/Vapor 2nd Hand Smoke Exposure: Yes Recent Infectious Disease Expo: No Recent Hopitalizations: No Have you traveled recently?: No Substance type: Amphetamines, Methamphetamine, Nicotine, Opiates/Opioids, Misuse of prescript meds, Other Alcohol Use?: Yes Immunizations Up To Date Tetanus Booster (TDap): Less than 5yrs PED Vaccines UTD: Yes Seasonal Allergies Seasonal Allergies: No Past Medical History Surgeries: Yes (HERNIA REPAIR) Abdominal Respiratory: No Currently Using CPAP: No Currently Using BIPAP: No Cardiac: Yes Hypertension Neurological: No Reproductive Disorders: No Female Reproductive Disorders: Denies HIV/AIDS: No Genitourinary: No Gastrointestinal: Yes Gastroesophageal Reflux Musculoskeletal: No Endocrine: No HEENT: No Loss of Vision: Denies Hearing Impairment: Denies Cancer: No Psychosocial: Yes (SUBSTANCE ABUSE) Anxiety, Depression Integumentary: No Blood Disorders: No Adverse Reaction/Blood Tranf: No Family Medical History Reviewed Nursing Family Hx Diabetes mellitus 19 MOTHER, Onset:40's - 50 FH: ovarian cancer in first degree relative 19 MOTHER, Onset:30's - 40 Hypercholesterolemia 19 MOTHER, Onset:40's - 50 Meningitis 19 FATHER, Onset:50's - 60 Pancreatitis 19 MOTHER, Onset:40's - 50 Pituitary disease 19 MOTHER, Onset:40's - 50 Cancer, Diabetes, GI Disease SOCIAL HISTORY: -ETOH--OCCASIONAL USE -DRUGS--+ IV METH USE, ALSO SMOKES IT. SNORTS COCAINE. RX DRUG ABUSE--PHENTERMINE, HYDROCODONE. THC USE. 7 TREATMENT PROGRAMS, LAST ONE IN 2013 IN [place] -SMOKES CIGARETTES PLUS VAPES Review of Systems Constitutional: No: Fever, Chills Eyes: No: Pain, Vision change ENT: No: Ear pain, Mouth pain Respiratory: No: Cough, Dry, Shortness of breath Cardiovascular: No: Chest Pain, Palpitations Gastrointestinal: No: Nausea, Vomiting, Abdominal Pain Genitourinary: No Dysuria, No Frequency Musculoskeletal: No: neck pain, back pain Skin: No: Rash, Lesions, Bruising Neurological: No: Weakness, Numbness, Incoordination Sepsis Event Evaluation Height, Weight, BMI Height: 5'8.00" Weight: 160lbs. 0oz. 72.982961lt; 28.73 BMI Method:Stated Exam Exam Vital Signs Date Time Temp Pulse Resp B/P (MAP) Pulse Ox O2 Delivery O2 Flow Rate FiO2 12/11/20 03:10 36.2 12/11/20 03:10 99 Room Air 12/11/20 00:00 62 12 119/76 (90) 96 Room Air 12/10/20 23:06 36.2 12/10/20 23:06 99 Room Air 12/10/20 23:00 66 11 111/68 (82) 97 Room Air 12/10/20 22:00 62 13 122/73 (89) 96 Room Air 12/10/20 21:00 80 30 118/77 (91) 97 Room Air 12/10/20 20:00 99 Room Air 12/10/20 20:00 75 36 129/79 (96) 97 Room Air 12/10/20 19:43 36.0 12/10/20 19:00 71 12/10/20 19:00 76 22 138/75 (96) 97 Room Air 12/10/20 19:00 Room Air 12/10/20 17:00 78 16 134/93 (107) 100 Room Air 12/10/20 16:30 36.1 75 18 148/99 (115) 96 Room Air 12/10/20 16:17 36.1 12/10/20 16:14 77 12/10/20 16:00 99 Room Air 12/10/20 15:40 82 15 128/100 99 Room Air 12/10/20 13:24 36.5 125 25 170/126 (141) 97 Room Air I & O 12/11/20 07:00 Intake Total 1325 ml Balance 1325 ml Height & Weight Height: 5'8.00" Weight: 160lbs. 0oz. 72.784112ge; 28.73 BMI Method:Stated General Appearance: No Apparent Distress, WD/WN HEENT: PERRL/EOMI, Moist Mucous Membranes Neck: Full Range of Motion, Non Tender Respiratory: Chest Non Tender, Normal Breath Sounds, No Accessory Muscle Use, No Respiratory Distress Cardiovascular: Regular Rate, Rhythm, No Murmur, Normal Peripheral Pulses Capillary Refill: Less Than 3 Seconds Peripheral Pulses: 2+ Dorsalis Pedis (R), 2+ Left Dors-Pedis (L), 2+ Radial Pulses (R), 2+ Radial Pulses (L) Gastrointestinal: normal bowel sounds, non tender, soft Extremity: Normal Capillary Refill, No Calf Tenderness, No Pedal Edema Neurologic/Psychiatric: Alert, Oriented x3, No Motor/Sensory Deficits, Normal Mood/Affect Skin: Normal Color, Warm/Dry Lymphatic: No Adenopathy Results Lab Laboratory Tests 12/10/20 13:28 12/11/20 03:35 Assessment/Plan Assessment/Plan Drug overdose- unintentional -PRN ativan for seizures -LR @ 125ml/hr -Continue to monitor -Poison control contacted by ED provider History of polysubstance abuse +UDS for amphetamines/methamphetamine/benzodiazepines History of anxiety/depression -Continue to monitor -Mental health referral HTN -Continue to monitor GERD -Start protonix JONO WILHELM DO 12/11/20 0513: Allergies and Home Medications Allergies Coded Allergies: No Known Drug Allergies (Unverified , 10/31/15) Home Medications Cefdinir 300 Mg Capsule, 300 MG PO BID Prescribed by: KRANTHI CALLES on 12/10/1658 Diclofenac Sodium 50 Mg Tablet.dr, 50 MG PO Q6H PRN for FLANK Prescribed by: KRANTHI CALLES on 12/10/1658 Past Bgtssys-Uwrqin-Khokdw Hx Family Medical History Diabetes mellitus 19 MOTHER, Onset:40's - 50 FH: ovarian cancer in first degree relative 19 MOTHER, Onset:30's - 40 Hypercholesterolemia 19 MOTHER, Onset:40's - 50 Meningitis 19 FATHER, Onset:50's - 60 Pancreatitis 19 MOTHER, Onset:40's - 50 Pituitary disease 19 MOTHER, Onset:40's - 50 Assessment/Plan Assessment/Plan Drug overdose- unintentional -PRN ativan for seizures -LR @ 125ml/hr -Continue to monitor -Poison control contacted by ED provider History of polysubstance abuse +UDS for amphetamines/methamphetamine/benzodiazepines History of anxiety/depression -Continue to monitor -Mental health referral HTN -Continue to monitor GERD -Start protonix Supervisory-Addendum Brief Verification & Attestation Participated in pt care: history, MDM, physical Personally performed: exam, history, MDM, supervision of care Care discussed with: Medical Student Procedures: n/a Results interpretation: Verified all documentation Verification and Attestation of Medical Student E/M Service A medical student performed and documented this service in my presence. I r eviewed and verified all information documented by the medical student and made modifications to such information, when appropriate. I personally performed the physical exam and medical decision making. Jono Wilhelm, December 11, 2020,05:13 IVAN FABIAN MED STUDENT December 11, 2020 04:30 JNOO WILHELM DO December 11, 2020 05:13
[2020-12-11] MEDS ORDERED: MAGNESIUM 1 GM/100 ML IVPB 100 ML IV SCH (06:00)
[2020-12-11] MEDS ORDERED: POTASSIUM CL 10MEQ/50ML IVPB 50 ML IV SCH (06:00)
[2020-12-11] MEDS ORDERED: KCL 20 MEQ TAB (K-DUR) PO SCH (06:00)
--- NOTE | 2020-12-11 09:33 | Short Stay Summary-Hospitalist ---
History of Present Illness HPI/Chief Complaint CC: Ultram overdose HPI: This is a 35yoWF previously clinic Pt of Dr. Doe and Dr. Rodriguez, now [facility], who presented to the ER after taking 30 Ultram pills. Pt was placed in observation in the ICU for IV fluids and Telemetry monitoring, no complications from the overdose, so she will be discharged with a safeplan and denies any suicidal ideation. Source: patient Exam Limitations: no limitations Date Seen 12/11/20 Time Seen by a Provider: 10:00 Attending Physician Devorah Garcia DO PCP Liza Doe DO Referring Physician Date of Admission December 10, 2020 at 14:46 Home Medications & Allergies Home Medications Reviewed patient Home Medication Reconciliation performed by pharmacy medication reconciliations licensed chemical spray technician and/or nursing. Patients Allergies have been reviewed. Allergies Allergies Coded Allergies No Known Drug Allergies (Unverified10/31/15) Past Medical/Social/Family Hx Patient Social History Marrital Status: Employed/Student: employed Tobacco Use?: No Smoking Status: Current Everyday Smoker Substance use?: Yes Substance type: Amphetamines, Methamphetamine, Nicotine, Opiates/Opioids, Misuse of prescript meds, Other TRAMADOL, HYDRO, Substance frequency: Daily Alcohol Use?: Yes Alcohol type: Beer, Hard Liquor, Wine Alcohol Frequency: Couple times a week Pt stated abuse/neglect: No Immunizations Up To Date Influenza Vaccine Up-to-Date: No; Not Current Hepatitis A: Yes Hepatitis B: Yes TB Skin Test: None Current Status status: No status: No Advance Directives: No Communicates: Verbally Primary Language: Mauritian Preferred Spoken Language: Mauritian Is interpretation needed?: No Family Medical History Family Hx: SOCIAL HISTORY: -ETOH--OCCASIONAL USE -DRUGS--+ IV METH USE, ALSO SMOKES IT. SNORTS COCAINE. RX DRUG ABUSE--PHENTERMINE, HYDROCODONE. THC USE. 7 TREATMENT PROGRAMS, LAST ONE IN 2012 IN [place] -SMOKES CIGARETTES PLUS VAPES Review of Systems Constitutional: see HPI Physical Exam Physical Exam Vital Signs Vital Signs - First Documented 12/10/20 13:24 Temp 36.5 Pulse 125 Resp 25 B/P (MAP) 170/126 (141) Pulse Ox 97 O2 Delivery Room Air Capillary Refill : Less Than 3 Seconds Height, Weight, BMI Height: 5'8.00" Weight: 160lbs. 0oz. 72.497282hy; 28.73 BMI Method:Stated General Appearance: No Apparent Distress, WD/WN HEENT: PERRL/EOMI, Moist Mucous Membranes Neck: Full Range of Motion, Non Tender Respiratory: Chest Non Tender, Normal Breath Sounds, No Accessory Muscle Use, No Respiratory Distress Cardiovascular: Regular Rate, Rhythm, No Murmur, Normal Peripheral Pulses Extremity: Normal Capillary Refill, No Calf Tenderness, No Pedal Edema Neurologic/Psychiatric: Alert, Oriented x3, No Motor/Sensory Deficits, Normal Mood/Affect Skin: Normal Color, Warm/Dry Lymphatic: No Adenopathy Results Results/Procedures Labs Laboratory Tests 12/10/20 13:28 12/11/20 03:35 Patient resulted labs reviewed. Short Stay Diagnosis Discharge Diagnosis-Short Stay Admission Diagnosis OD Final Discharge Diagnosis OD Conclusion Plan DC home with safe plan Diagnosis/Problems Diagnosis/Problems (1) Drug overdose Status: Acute Qualifiers: Qualified Codes: T50.901A - Poisoning by unspecified drugs, medicaments and biological substances, accidental (unintentional), initial encounter (2) Substance abuse Status: Acute DEVORAH GARCIA DO December 11, 2020 09:33
== END 2020-12-11 10:10 | disposition home or self-care (01) ==
LOC: EDUNIT# 13:17 → ER 13:19 → ICU 14:46
PROVIDERS: ADMIT Internal Medicine; ATTEND Internal Medicine
DX: T40.2X1A Poisoning by other opioids, accidental (unintentional), initial encounter (principal); I10 Essential (primary) hypertension; K21.9 Gastro-esophageal reflux disease without esophagitis; F41.9 Anxiety disorder, unspecified; F32.9 Major depressive disorder, single episode, unspecified; F17.290 Nicotine dependence, other tobacco product, uncomplicated; F17.210 Nicotine dependence, cigarettes, uncomplicated; F19.10 Other psychoactive substance abuse, uncomplicated; Z79.899 Other long term (current) drug therapy; Z83.3 Family history of diabetes mellitus
CPT/HCPCS: 80048; 80053; 80306; 81000; 82550; 82947; 83735; 84100; 84703; 85025 ×2; 93005; 93041; 99285; G0480 ×3; 36415; 80320; 80329; G0378

== ENCOUNTER 2021-03-06 05:37 | Outpatient (CLI) | payer BC ==
[~2021-03-06] VITALS: Ht 175.3 cm; Wt 94.1 kg
[~2021-03-06 05:37] MED LIST changes: -OMEP40CA27; +OMEP40CA6
[2021-03-07] MEDS ORDERED: NALT380S2 IM (09:01)
[2021-03-07] MEDS ORDERED: METO50TA7 PO (09:01)
[2021-03-07] MEDS ORDERED: FLUO40CA12 PO (09:01)
== END 2021-03-07 09:14 | disposition home or self-care (01) ==
LOC: PREOP 05:37
PROVIDERS: ATTEND Obstetrics & Gynecology
DX: Z01.818 Encounter for other preprocedural examination (principal)

== ENCOUNTER 2021-03-13 10:34 | Day surgery (SDC) | payer BC ==
[2021-03-13] VITALS (12 sets, daily range): BP systolic 112–152; BP diastolic 60–96
[~2021-03-13] VITALS: Ht 175 cm; Wt 94.1 kg
--- NOTE | 2021-03-13 08:52 | Progress Note-Pre Operative ---
Pre-Operative Progress Note H&P Reviewed The H&P was reviewed, patient examined and no changes noted. Date Seen by Provider: Mar 13, 2021 Time Seen by Provider: 13:00 Date H&P Reviewed: Mar 13, 2021 Time H&P Reviewed: 13:00 Pre-Operative Diagnosis: Menorrhagia/chronic pelvic pain/endometriosis/intrauterine mass ZION ADKINS MD Mar 13, 2021 08:52
--- NOTE | 2021-03-13 08:53 | Progress Note-Post Operative ---
Post-Operative Progess Note Surgeon (s)/Varnish Finisher (s) Surgeon ZION ADKINS MD Varnish Finisher: Zoila Mayer Pre-Operative Diagnosis Menorrhagia/chronic pelvic pain/endometriosis/intrauterine mass Post-Operative Diagnosis Same with pathology pending Procedure & Operative Findings Date of Procedure 03/13/21 Procedure Performed/Findings Total laparoscopic hysterectomy with right salpingo-oophorectomy and appendectomy and left salpingectomy Anesthesia Type GETA Estimated Blood Loss Estimated blood loss (mL): Minimal Specimens/Packing Specimens Removed Uterus both fallopian tubes right ovary and appendix Packing: None ZION ADKINS MD Mar 13, 2021 08:53
[~2021-03-13 10:34] MED LIST changes: +FLUO40CA12 PO; +METO50TA7 PO; +NALT380S2 IM
[2021-03-13 11:02] LABS: AMPHETAMINE SCREEN, URINE NEGATIVE (NEGATIVE); BARBITURATE SCREEN URINE NEGATIVE (NEGATIVE); BENZODIAZEPINES SCREEN URINE NEGATIVE (NEGATIVE); CANNABINOID SCREEN, URINE NEGATIVE (NEGATIVE); COCAINE SCREEN URINE NEGATIVE (NEGATIVE); METHADONE STAT NEGATIVE (NEGATIVE); METHAMPHETAMINE SCREEN URINE S NEGATIVE (NEGATIVE); OPIATE SCREEN URINE NEGATIVE (NEGATIVE); OXYCODONE STAT NEGATIVE (NEGATIVE); PROPOXYPHENE STAT NEGATIVE (NEGATIVE); TRICYCLIC ANTIDEPRESSANTS SCRE NEGATIVE (NEGATIVE)
[2021-03-13] MEDS ORDERED: LIDOCAINE/EPI 1%-1:100,000 (XYLOCAINE) 20ML ONE (11:06)
[2021-03-13] MEDS: LACTATED RINGERS 1,000 ML IV PRN ×2 (11:20→13:49)
[2021-03-13 11:25] LABS: BASOPHILS # (AUTO) 0.1 10^3/uL (0.0-0.1); BASOPHILS % (AUTO) 1 % (0-10); EOSINOPHILS # (AUTO) 0.1 10^3/uL (0.0-0.3); EOSINOPHILS % (AUTO) 2 % (0-10); HEMATOCRIT 40 % (35-52); HEMOGLOBIN 13.6 g/dL (11.5-16.0); LYMPHOCYTES # (AUTO) 3.2 10^3/uL (1.0-4.0); LYMPHOCYTES % (AUTO) 42 % (12-44); MEAN CORPUSCULAR HEMOGLOBIN 31 pg (25-34); MEAN CORPUSCULAR HGB CONC 34 g/dL (32-36); MEAN CORPUSCULAR VOLUME 89 fL (80-99); MEAN PLATELET VOLUME 10.6 fL (9.0-12.2); MONOCYTES # (AUTO) 0.7 10^3/uL (0.0-1.0); MONOCYTES % (AUTO) 9 % (0-12); NEUTROPHILS # (AUTO) 3.6 10^3/uL (1.8-7.8); NEUTROPHILS % (AUTO) 46 % (42-75); PLATELET COUNT 320 10^3/uL (130-400); WHITE BLOOD COUNT 7.7 10^3/uL (4.3-11.0)
[2021-03-13] MEDS ORDERED: ceFAZolin INJECTION 1,000 MG in WATER (STERILE) FOR INJECTION 10 ML IV ONE (11:30)
[2021-03-13] MEDS ORDERED: fentaNYL INJ 100 MCG/2 ML AMP IVP PRN (11:30)
[2021-03-13] MEDS ORDERED: ONDANSETRON 4 MG/2 ML (SDV) Z0FRAN IVP PRN ×3 (11:30→14:30)
[2021-03-13] MEDS ORDERED: KETOROLAC 30 MG/ML VIAL IVP SCH (11:30)
[2021-03-13] MEDS ORDERED: ESTROGENS CONJ INJECTION 25 MG in WATER (STERILE) FOR INJECTION 5 ML IV ONE (11:30)
[2021-03-13] MEDS ORDERED: proPOfol 200 MG/20 ML (DIPRIVAN) VIAL IV ONE (12:09)
[2021-03-13] MEDS ORDERED: SEVOFLURANE (ULTANE) 15 ML INHAL SOLN ONE ×2 (12:09→14:16)
[2021-03-13] MEDS ORDERED: MIDAZOLAM 2 MG/2 ML (VERSED) VIAL ONE (12:09)
[2021-03-13] MEDS ORDERED: ONDANSETRON 4 MG/2 ML (SDV) Z0FRAN ONE (12:09)
[2021-03-13] MEDS ORDERED: ROCURONIUM 10 MG/ML 5 ML SYRINGE IV ONE (12:09)
[2021-03-13] MEDS ORDERED: LIDOCAINE PF 2% 5 ML (XYLOCAINE) VIAL ONE (12:09)
[2021-03-13] MEDS ORDERED: fentaNYL INJ 100 MCG/2 ML AMP ONE (12:09)
[2021-03-13] MEDS ORDERED: DCS100C PO (13:06)
[2021-03-13] MEDS ORDERED: OXYC1TAB87 PO (13:06)
[2021-03-13] MEDS ORDERED: IBUP-1780 PO (13:06)
--- NOTE | 2021-03-13 13:09 | Discharge Inst-Surgical ---
Discharge Inst-Surgical Depart Medication/Instructions New, Converted or Re-Newed RX: Transmitted to Pharmacy Consults/Follow Up Patient Instructions: As directed Orders & Referrals Follow Up Appt: Return to clinic on Wednesday March 17, 2021 at 9:30 AM for staple removal Call to make follow up appt. for patient in 4 weeks. Activity: Rest for 24 hours, than as tolerated. Wound Care: May remove Band-Aid tomorrow. Replace as desired. Keep incisions clean and dry. Wash daily with soap and water. Diet: As tolerated- may shower or tub bathe as desired. No driving for 24 hours, no alcoholic beverages for 24 hours, and nothing per vagina (no tampons, douching, or intercourse) for 8 weeks. Patient to return to the clinic as soon as possible for: Temperature greater than 101F, Severe Pain, Foul discharge from incision or vagina, Excessive Bleeding (more than a period). Activity Activity as Tolerated: No Diet Discharge Diet: No Restrictions ZION ADKINS MD Mar 13, 2021 13:09
[2021-03-13] MEDS ORDERED: KETOROLAC 30 MG/ML VIAL ONE (14:09)
[2021-03-13] MEDS ORDERED: MEPERIDINE (DEMEROL) INJ 50 MG/ML IVP ONE (14:30)
[2021-03-13] MEDS ORDERED: HYDROmorphone 2 MG/ML VIAL (DILAUDID) IV ONE (14:30)
[2021-03-13] MEDS ORDERED: PROMETHAZINE INJ 25 MG/ML (PHENERGAN) AMP IVP ONE (14:30)
[2021-03-13] MEDS ORDERED: morphine INJ 10 MG/ML 1ML (SYR OR VIAL) IVP ONE (14:30)
[2021-03-13] MEDS ORDERED: MEPERIDINE (DEMEROL) INJ 50 MG/ML ONE (14:34)
[2021-03-13] MEDS ORDERED: HYDROmorphone 2 MG/ML VIAL (DILAUDID) ONE (14:35)
[2021-03-13] MEDS ORDERED: WATER (STERILE) FOR INJECTION 10 ML ONE (14:35)
[2021-03-13] MEDS ORDERED: ESTROGENS CONJ IV 25 MG/5 ML (PREMARIN) VIAL ONE (14:35)
--- NOTE | 2021-03-13 14:52 | Anesthesia-General Post-Op ---
General Patient Condition Mental Status/LOC: Same as Preop Cardiovascular: Satisfactory Nausea/Vomiting: Absent Respiratory: Satisfactory Pain: Controlled Complications: Absent Post Op Complications Complications None Follow Up Care/Instructions Patient Instructions None needed. Anesthesia/Patient Condition Patient Condition Patient is doing well, no complaints, stable vital signs, no apparent adverse anesthesia problems. No complications reported per nursing. KEMAL CONNOR CRNA Mar 13, 2021 14:52
[2021-03-13] MEDS ORDERED: D5 LR IV SOLUTION 1,000 ML IV ONE (15:30)
[2021-03-13] MEDS: D5 LR IV SOLUTION 1,000 ML IV SCH ×2 (15:34→23:00)
[2021-03-13] MEDS: oxyCODONE/APAP 5/325MG (PERCOCET 5) TABLET PO PRN ×2 (18:20→19:39)
[2021-03-13] MEDS: KETOROLAC 30 MG/ML VIAL IVP SCH (19:39)
[2021-03-13] MEDS: DOCUSATE SODIUM 100 MG (COLACE) CAP PO SCH (19:39)
--- NOTE | 2021-03-13 20:59 | OPERATIVE REPORT ---
DATE OF SERVICE: 03/13/2021 PREOPERATIVE DIAGNOSES: Menorrhagia, chronic pelvic pain, endometriosis and intrauterine mass. POSTOPERATIVE DIAGNOSES: Menorrhagia, chronic pelvic pain, endometriosis and intrauterine mass with likely appendicitis and with overt endometriosis and with left ovarian cyst. OPERATIVE PROCEDURE: Total laparoscopic hysterectomy with bilateral salpingectomies, right oophorectomy, left ovarian cyst aspiration, destruction of endometriosis implants and laparoscopic appendectomy. OPERATIVE DESCRIPTION: With the patient in the supine position under satisfactory general anesthesia, she was repositioned in dorsal lithotomy position in the [facility] and then prepped and draped in the usual fashion for abdominal and vaginal surgery. Weighted speculum placed in posterior fornix of vagina, cervix exposed and grasped anteriorly with single tooth tenaculum. Uterus sounded to 12 cm with uterine sound. The cervix was then serially dilated with Prem dilators to accommodate a Keyla II manipulator, using a 6 mm x 8 cm uterine probe and a 30 mm colpotomy ring. Sutures of #1 Vicryl placed at 3 and 9 o'clock position of the cervix to affix the uterus to the manipulator. Three-way Napoles catheter was placed in the urinary bladder. Tenaculum and speculum were removed from the vagina. The patient was brought in low dorsal lithotomy position. A 12 mm incision was made 8 cm superior to the umbilicus, 8 mm incisions were made 8 cm lateral to the umbilicus at a level 3 cm above the umbilicus. Veress needle was placed in the midline incision, correct placement confirmed with a water drop test. The abdomen was insufflated with 2.4 liters of carbon dioxide and the Veress needle was removed and a 12 mm laparoscopic port was placed. Under direct vision, 8 mm ports were placed in the lateral incisions. The patient was placed in Trendelenburg, allowing the bowel spill out of the pelvis. The da Cece column was advanced on the patient, docked and operative instrument placed in right and left lateral ports and I retired to the [employer] Cece console. The console using the vessel sealer on the right and a bipolar fenestrated grasper on the left, the pelvis was first examined. There was obvious endometriosis involving the right ovary and the right ovarian fossa as well as the right fallopian tube. The tube had a paratubal cyst and/or hydrosalpinx on the right. The left fallopian tubes looked normal. There was some endometriosis in the left ovarian fossa. There were two small spots of endometriosis on the left ovary. The patient had requested conservation of the left ovary and we elected to monitor that and just remove the endometriosis from that ovary. Laparoscope was rotated. The appendix was seen and it was a vermiform appendix. It was indurated, firm, distorted and enlarged in its mid portion and markedly injected. Decision was made to go ahead with appendectomy concurrent with the balance of the procedures. Laparoscope was brought back to the pelvis. The right ureter was identified medial to the IP ligament. The IP ligament was then clamped, cauterized and divided with the vessel sealer. This continued stepwise across the mesovarium, across the round ligament, across the broad ligament and down on the cardinal ligament. On the left side, the fallopian tube was elevated. The mesosalpinx was clamped, cauterized and divided also with the vessel sealer. This was continued across the mesosalpinx until access was gained to the uteroovarian pedicle, which was clamped, cauterized and divided as was the round ligament, the broad ligament and then dissection was carried down onto the cardinal ligament. The anterior lower uterine segment peritoneum was divided using a bipolar lizandro. The bladder was dissected down off the lower uterine segment and colpotomy incision was started at 12 o'clock position on the cervix. That incision was continued circumferentially until the entire colpotomy ring was exposed, then the uterus was extracted through the vagina with a little bit of difficulty due to the size of the uterus with the tubes still attached as well as the left ovary. Vaginal cuff was now closed with a running suture of V-Loc barbed suture starting from the right angle and continuing across the vaginal cuff until it was completely closed to the left angle and then the last two stitches were used to reapproximate the bladder peritoneum back down onto the vaginal cuff. Care was taken to ensure inclusion of the uterine vessel pedicles in the angle stitches of the vaginal cuff closure. The right ureter was seemed easily peristalsing. The left ureter seemed with little more difficult as tThere was just under deeper layer of tissue that was well away from the areas of dissection and peristalsing freely and normal diameter. There was no bleeding. There was some endometriosis still in the cul-de-sac. This was touched with electrocautery to distort. The mesoappendix had been divided with the vessel sealer over to the base of the appendix. The laparoscopic da Cece portion of the procedure at this point was halted. The da Cece instruments and column were removed using the da Cece scope in the right lateral grasper in the left port and a stapler in the midline port. The appendix was grasped and elevated. The Endo-YANCI was placed across the base of the appendix and fired, severing the appendix from its attachment. An attempt was made to bring it out with an Endobag that was unsuccessful, so the appendix was brought directly out through the umbilical port. The stump of the appendix was copiously irrigated and treated with several drops of Betadine solution. With hemostasis assured, sponge and needle counts correct, and no remaining abnormal pathology, the procedure was terminated. The operative ports were removed under direct vision as were the operative instruments. The abdomen was evacuated of insufflating gas in the process of removing the ports. The skin incisions were closed with russell after first closing the fascia at the supraumbilical incision with [id number] suture of 2-0 Vicryl. Speculum was placed in the vagina. Vaginal cuff examined, it was completely hemostatic and completely reapproximated. Napoles catheter was left to dependent drainage and was draining clear yellow urine. Again, sponge and needle counts were correct. Hemostasis was assured and blood loss was minimal. The patient was now uneventfully awakened from her general anesthesia and transferred to recovery room in stable condition. Job ID: [id number] DocumentID: [id number] Dictated Date: 03/13/2021 14:18:26 Door To Door Salesman Date: 03/13/2021 20:58:43 Dictated By: ZION ADKINS MD
[2021-03-14] MEDS: oxyCODONE/APAP 5/325MG (PERCOCET 5) TABLET PO PRN ×2 (00:39→07:24)
[2021-03-14] MEDS: KETOROLAC 30 MG/ML VIAL IVP SCH (01:49)
[2021-03-14 04:33] VITALS: BP 103/57
--- NOTE | 2021-03-14 06:49 | Progress Note ---
Standard Progress Note Progress Notes/Assess & Plan Date Seen by a Provider: Mar 14, 2021 Time Seen by a Provider: 06:47 Progress/Assessment & Plan This patient is a compliant patient ambulating, tolerating oral intake well has good pain control. Patient has not voided yet. Patient denies chest pain, denies shortness of breath, denies headache, denies nausea vomiting Vital Signs Date Time Temp Pulse Resp B/P (MAP) Pulse Ox O2 Delivery O2 Flow Rate FiO2 03/14/21 04:33 36.0 78 18 103/57 (72) 97 Room Air 03/13/21 23:27 36.6 70 18 112/60 (77) 97 Room Air 03/13/21 19:30 36.7 76 18 121/77 (92) 96 Room Air 03/13/21 18:17 36.6 70 18 126/86 (99) 99 Room Air 03/13/21 15:55 68 16 136/83 (100) 99 Room Air 03/13/21 15:20 36.4 67 14 136/71 (92) 98 Room Air 03/13/21 15:20 36.4 18 134/82 (99) 97 Room Air 03/13/21 15:20 Room Air 03/13/21 15:12 Room Air 03/13/21 15:10 18 131/86 (101) 98 Room Air 03/13/21 15:04 Room Air 03/13/21 15:00 18 133/83 (100) 100 OxyMask 3 03/13/21 14:59 OxyMask 3 03/13/21 14:50 18 131/89 (103) 100 OxyMask 6 03/13/21 14:50 OxyMask 6 03/13/21 14:40 18 152/96 (114) 100 OxyMask 6 03/13/21 14:35 OxyMask 6 03/13/21 14:30 18 134/92 (106) 100 OxyMask 6 03/13/21 14:22 36.7 12 122/83 (96) 100 OxyMask 6 03/13/21 14:22 OxyMask 6 03/13/21 11:33 36.1 73 16 119/86 (97) 98 Room Air I & O 03/14/21 07:00 Intake Total 2000 ml Output Total 845 ml Balance 1155 ml Vital signs are stable. Patient is afebrile. The abdomen is benign. The surgical incisions are clean and dry Extremities show no clubbing or cyanosis. There is no Homans' sign Assessment and plan Postoperative day #1 doing well plan is for routine convalescent care with discharge home once adequate bladder function is demonstrated Final Diagnosis Menorrhagia/chronic pelvic pain/endometriosis/uterine mass ZION ADKINS MD Mar 14, 2021 06:49
[2021-03-14] MEDS: DOCUSATE SODIUM 100 MG (COLACE) CAP PO SCH (08:33)
[2021-03-14 08:36] VITALS: BP 125/74
[2021-03-14] MEDS ORDERED: DOCUSATE SODIUM 100 MG (COLACE) CAP PO SCH (09:00)
[2021-03-14 09:45] VITALS: BP 125/74
[2021-03-14] MEDS ORDERED: IBUPROFEN 800 MG (MOTRIN) TAB PO SCH (14:00)
== END 2021-03-14 09:45 | disposition home or self-care (01) ==
LOC: SDC 10:34 → WS 14:42 → SDC 03-14 09:45
PROVIDERS: ATTEND Obstetrics & Gynecology
DX: D25.1 Intramural leiomyoma of uterus (principal); N83.8 Other noninflammatory disorders of ovary, fallopian tube and broad ligament; N83.201 Unspecified ovarian cyst, right side; G89.29 Other chronic pain; I10 Essential (primary) hypertension; K21.9 Gastro-esophageal reflux disease without esophagitis; F41.9 Anxiety disorder, unspecified; F32.9 Major depressive disorder, single episode, unspecified; F17.210 Nicotine dependence, cigarettes, uncomplicated; Z79.899 Other long term (current) drug therapy
CPT/HCPCS: 36415; 80306; 84703; 85025; 86850; 86900; 86901; 87081

== ENCOUNTER → 2021-04-18 | Outpatient (CLI) | payer BC ==
[~2021-04-18] MED LIST changes: +DOCU-239 PO
--- NOTE | 2021-04-18 08:50 | Diagnostic Imaging Report ---
PROCEDURE: US Gallbladder. TECHNIQUE: Multiple real-time grayscale images were obtained over the right upper quadrant in various projections. INDICATION: Upper abdominal pain Liver parenchyma is homogeneous with normal echotexture. The portal vein is patent with hepatopetal flow. Gallbladder appears normal. The common duct is not dilated. Visualized portions of the pancreas are normal. Aorta and IVC appear normal. Right kidney measures 9.4 cm in length and appears normal. There is no ascites. IMPRESSION: Negative right upper quadrant ultrasound. Dictated by: Dictated on workstation # [id number]
== END ==
LOC: RAD 07:49
PROVIDERS: ATTEND Obstetrics & Gynecology
DX: R10.10 Upper abdominal pain, unspecified (principal)
CPT/HCPCS: 76705

== ENCOUNTER 2022-01-05 20:11 | Emergency (ER) | payer BC ==
[2022-01-05] MEDS ORDERED: NS IV 1000 ML 1,000 ML IV STA (20:31)
--- NOTE | 2022-01-05 20:34 | ED Abdominal Pain ---
General Chief Complaint: Abdominal/GI Problems Stated Complaint: STOMACH PAIN Source of Information: Patient Exam Limitations: No Limitations History of Present Illness Date Seen by Provider: Jan 05, 2022 Time Seen by Provider: 20:32 Initial Comments Patient is a 36-year-old female with history of endometriosis who presents ED with left side abdominal pain. acute onset 3 hours ago. Pain is described as sharp and constant with radiation to left flank. Noted some mild discomfort with urination and dark urine. History of total hysterectomy and hernia repair. She vomited 3 times without diarrhea. She reports normal bowel movements. Denies chest pain, shortness of breath, visual changes, neck pain. Allergies and Home Medications Allergies Coded Allergies: No Known Drug Allergies (Unverified , 03/13/21) Patient Home Medication List Home Medication List Reviewed: Yes Docusate Sodium (Dok) 100 Mg Capsule, 100 MG PO BID Prescribed by: ZION JORGENSEN on 03/13/21 1306 Fluoxetine HCl (Prozac) 40 Mg Capsule, 40 MG PO DAILY, (Reported) Entered as Reported by: AHMET WEBB on 03/07/21 09 Ibuprofen (Ibuprofen) 800 Mg Tablet, 800 MG PO Q6HR Prescribed by: ZION JORGENSEN on 03/13/21 1306 Metoprolol Succinate (Metoprolol Succinate) 50 Mg Tab.er.24h, 50 MG PO DAILY, (Reported) Entered as Reported by: AHMET WEBB on 03/07/21 09 Naltrexone Microspheres (Vivitrol) 380 Mg Lyssa.er.rec, 380 MG IM MONTHLY, (Reported) Entered as Reported by: AHMET WEBB on 03/07/21 0901 Oxycodone HCl/Acetaminophen (Percocet 5-325 mg Tablet) 1 Each Tablet, 1 TAB PO Q4H PRN for PAIN-MODERATE (5-7) Prescribed by: ZION JORGENSEN on 03/13/21 1307 Review of Systems Review of Systems Constitutional: No chills, No diaphoresis, No malaise, No weakness EENTM: No Eye Pain Respiratory: Denies Cough, Denies Orthopnea Cardiovascular: Denies Chest Pain Gastrointestinal: Abdominal Pain, Nausea, Vomiting Genitourinary: Denies Burning, Denies Discharge; Flank Pain, Hematuria Musculoskeletal: back pain; No joint pain Skin: No change in color, No change in hair/nails All Other Systems Reviewed Negative Unless Noted: Yes Past Rhwhryk-Gdcfeo-Zddmkm Hx Immunizations Up To Date Tetanus Booster (TDap): Less than 5yrs PED Vaccines UTD: Yes Seasonal Allergies Seasonal Allergies: No Past Medical History Surgeries: Yes (HERNIA REPAIR) Abdominal Respiratory: No Currently Using CPAP: No Currently Using BIPAP: No Cardiac: Yes Hypertension Neurological: No Reproductive Disorders: No Female Reproductive Disorders: Endometriosis, Ovarian Cyst HIV/AIDS: No Genitourinary: No Gastrointestinal: Yes Gastroesophageal Reflux Musculoskeletal: No Endocrine: No HEENT: No Loss of Vision: Denies Hearing Impairment: Denies Cancer: No Psychosocial: Yes (SUBSTANCE ABUSE; accidental overdose) Anxiety, Depression Integumentary: No Blood Disorders: No Adverse Reaction/Blood Tranf: No Family Medical History Diabetes mellitus 19 MOTHER, Onset:40's - 50 FH: ovarian cancer in first degree relative 19 MOTHER, Onset:30's - 40 Hypercholesterolemia 19 MOTHER, Onset:40's - 50 Meningitis 19 FATHER, Onset:50's - 60 Pancreatitis 19 MOTHER, Onset:40's - 50 Pituitary disease 19 MOTHER, Onset:40's - 50 Cancer, Diabetes, GI Disease SOCIAL HISTORY: -ETOH--OCCASIONAL USE -DRUGS--+ IV METH USE, ALSO SMOKES IT. SNORTS COCAINE. RX DRUG ABUSE--PHENTERMINE, HYDROCODONE. THC USE. 7 TREATMENT PROGRAMS, LAST ONE IN 2013 IN [place] -SMOKES CIGARETTES PLUS VAPES Physical Exam Vital Signs Capillary Refill : Height/Weight/BMI Height: 5'8.00" Weight: 160lbs. 0oz. 72.773632ig; 30.72 BMI Method:Stated General Appearance: WD/WN, no apparent distress HEENT: PERRL/EOMI, normal ENT inspection, TMs normal, pharynx normal Neck: non-tender, full range of motion, supple, normal inspection Respiratory: chest non-tender, lungs clear, normal breath sounds, no respiratory distress, no accessory muscle use Cardiovascular: regular rate, rhythm, no edema, no gallop, no JVD Gastrointestinal: normal bowel sounds, soft, no organomegaly, no pulsatile mass, tenderness (left sided Abdominal tenderness) Extremities: normal range of motion, non-tender, normal inspection, no pedal edema 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, no motor/sensory deficits, alert, normal mood/affect, oriented x 3 Skin: normal color, warm/dry Progress/Results/Core Measures Results/Orders Lab Results Laboratory Tests Test 01/05/22 20:34 01/05/22 20:36 Range/Units White Blood Count 10.9 4.3-11.0 10^3/uL Red Blood Count 4.30 3.80-5.11 10^6/uL Hemoglobin 13.1 11.5-16.0 g/dL Hematocrit 38 35-52 % Mean Corpuscular Volume 88 80-99 fL Mean Corpuscular Hemoglobin 31 25-34 pg Mean Corpuscular Hemoglobin Concent 35 32-36 g/dL Red Cell Distribution Width 12.5 10.0-14.5 % Platelet Count 349 130-400 10^3/uL Mean Platelet Volume 10.3 9.0-12.2 fL Immature Granulocyte % (Auto) 1 % Neutrophils (%) (Auto) 52 42-75 % Lymphocytes (%) (Auto) 38 12-44 % Monocytes (%) (Auto) 7 0-12 % Eosinophils (%) (Auto) 2 0-10 % Basophils (%) (Auto) 1 0-10 % Neutrophils # (Auto) 5.7 1.8-7.8 10^3/uL Lymphocytes # (Auto) 4.1 H 1.0-4.0 10^3/uL Monocytes # (Auto) 0.8 0.0-1.0 10^3/uL Eosinophils # (Auto) 0.2 0.0-0.3 10^3/uL Basophils # (Auto) 0.1 0.0-0.1 10^3/uL Immature Granulocyte # (Auto) 0.1 0.0-0.1 10^3/uL Sodium Level 137 135-145 MMOL/L Potassium Level 4.0 3.6-5.0 MMOL/L Chloride Level 102 98-107 MMOL/L Carbon Dioxide Level 24 21-32 MMOL/L Anion Gap 11 5-14 MMOL/L Blood Urea Nitrogen 11 7-18 MG/DL Creatinine 0.86 0.60-1.30 MG/DL Estimat Glomerular Filtration Rate 90 BUN/Creatinine Ratio 13 Glucose Level 103 70-105 MG/DL Calcium Level 9.7 8.5-10.1 MG/DL Corrected Calcium 9.5 8.5-10.1 MG/DL Total Bilirubin 0.3 0.1-1.0 MG/DL Aspartate Amino Transf (AST/SGOT) 22 5-34 U/L Alanine Aminotransferase (ALT/SGPT) 20 0-55 U/L Alkaline Phosphatase 76 40-136 U/L Total Protein 7.4 6.4-8.2 GM/DL Albumin 4.3 3.2-4.5 GM/DL Lipase 16 8-78 U/L Urine Color YELLOW Urine Clarity CLEAR Urine pH 5.5 5-9 Urine Specific [place] >=1.030 1.016-1.022 Urine Protein NEGATIVE NEGATIVE Urine Glucose (UA) NEGATIVE NEGATIVE Urine Ketones NEGATIVE NEGATIVE Urine Nitrite NEGATIVE NEGATIVE Urine Bilirubin NEGATIVE NEGATIVE Urine Urobilinogen 0.2 < = 1.0 MG/DL Urine Leukocyte Esterase NEGATIVE NEGATIVE Urine RBC (Auto) NEGATIVE NEGATIVE Urine RBC NONE /HPF Urine WBC 0-2 /HPF Urine Squamous Epithelial Cells 2-5 /HPF Urine Renal Epithelial Cells NONE /HPF Urine Crystals NONE /LPF Urine Bacteria TRACE /HPF Urine Casts NONE /LPF Urine Mucus SMALL H /LPF Urine Culture Indicated NO My Orders Orders - ALIS RINALDI Ct Abd/Pelvis Wo(Kidney Stone) (01/05/22 20:31) Cbc With Automated Diff (01/05/22 20:31) Comprehensive Metabolic Panel (01/05/22 20:31) Lipase (01/05/22 20:31) Ns Iv 1000 Ml (Sodium Chloride 0.9%) (01/05/22 20:31) Ondansetron Injection (Zofran Injectio (01/05/22 20:45) Ketorolac Injection (Toradol Injection) (01/05/22 20:45) Ua Culture If Indicated (01/05/22 21:04) Morphine Injection (Morphine Injection (01/05/22 21:15) Rx-Hydrocodone/Apap 5-325 Mg (Rx-Vicodin (01/05/22 22:15) Medications Given in ED Current Medications Medications Dose Ordered Sig/Heri Route Start Time Stop Time Status Last Admin Dose Admin Acetaminophen/ Hydrocodone Bitart 1 ea ONCE ONCE PO 01/05/22 22:15 01/05/22 22:16 DC 01/05/22 22:17 1 EA Ketorolac Tromethamine 30 mg ONCE ONCE IVP 01/05/22 20:45 01/05/22 20:46 DC 01/05/22 20:43 30 MG Morphine Sulfate 4 mg ONCE ONCE IVP 01/05/22 21:15 01/05/22 21:16 DC 01/05/22 21:27 4 MG Ondansetron HCl 4 mg ONCE ONCE IVP 01/05/22 20:45 01/05/22 20:46 DC 01/05/22 20:43 4 MG Departure Communication (PCP) CT abdomen and pelvis with a 8.2 cm multi loculated cyst in the left lower quadrant concerning from ovarian origin. No evidence of abscess. No evidence of obstruction. Urinalysis was negative for infection or hematuria. Not concern for sexual transmitted infection. Lab work was otherwise unremarkable. Patient pain controlled here in the ED. Patient was given a liter of fluid. Discussed patient with Dr. Cobb regarding patient's results concerning for cystic mass. He recommends following up in the office tomorrow morning for ultrasound and further evaluation. Recommends no ultrasound at this time. Family history of cervical cancer. History of partial hysterectomy. Patient has seen Dr. COBB in the past and will follow-up in the morning. She agrees with this plan of action. Patient will be discharged. Impression Primary Impression: Left ovarian cyst Disposition: HOME, SELF-CARE Condition: Stable Departure-Patient Inst. Decision time for Depature: 22:07 Ref[place] [facility] [place] Primary Care Physician KASSIE BHAT APRN (Family) Primary Care Physician ZION COBB MD Patient Instructions: Ovarian Cyst ED Add. Discharge Instructions: Recommend following up with Dr. Cobb in the morning All discharge instructions reviewed with patient and/or family. Voiced understanding. ALIS RINALDI Jan 05, 2022 20:34
[2022-01-05] MEDS ORDERED: KETOROLAC 30 MG/ML VIAL IVP ONE (20:45)
[2022-01-05] MEDS ORDERED: ONDANSETRON 4 MG/2 ML (SDV) Z0FRAN IVP ONE (20:45)
[2022-01-05 20:55] LABS: BASOPHILS # (AUTO) 0.1 10^3/uL (0.0-0.1); BASOPHILS % (AUTO) 1 % (0-10); EOSINOPHILS # (AUTO) 0.2 10^3/uL (0.0-0.3); EOSINOPHILS % (AUTO) 2 % (0-10); HEMATOCRIT 38 % (35-52); HEMOGLOBIN 13.1 g/dL (11.5-16.0); LYMPHOCYTES # (AUTO) 4.1 10^3/uL (1.0-4.0); LYMPHOCYTES % (AUTO) 38 % (12-44); MEAN CORPUSCULAR HEMOGLOBIN 31 pg (25-34); MEAN CORPUSCULAR HGB CONC 35 g/dL (32-36); MEAN CORPUSCULAR VOLUME 88 fL (80-99); MEAN PLATELET VOLUME 10.3 fL (9.0-12.2); MONOCYTES # (AUTO) 0.8 10^3/uL (0.0-1.0); MONOCYTES % (AUTO) 7 % (0-12); NEUTROPHILS # (AUTO) 5.7 10^3/uL (1.8-7.8); NEUTROPHILS % (AUTO) 52 % (42-75); PLATELET COUNT 349 10^3/uL (130-400); WHITE BLOOD COUNT 10.9 10^3/uL (4.3-11.0)
[2022-01-05 21:11] LABS: BILIRUBIN,URINE NEGATIVE (NEGATIVE); CLARITY,URINE CLEAR; COLOR,URINE YELLOW; GLUCOSE, URINE (UA) NEGATIVE (NEGATIVE); KETONES,URINE NEGATIVE (NEGATIVE); LEUKOCYTE ESTERASE ,URINE NEGATIVE (NEGATIVE); NITRITE,URINE NEGATIVE (NEGATIVE); PH,URINE 5.5 (5-9); PROTEIN,URINE NEGATIVE (NEGATIVE)
[2022-01-05 21:12] LABS: ALBUMIN 4.3 GM/DL (3.2-4.5)
[2022-01-05 21:13] LABS: CALCIUM 9.7 MG/DL (8.5-10.1)
[2022-01-05 21:15] LABS: TOTAL PROTEIN 7.4 GM/DL (6.4-8.2)
[2022-01-05] MEDS ORDERED: morphine INJ 10 MG/ML 1ML (SYR OR VIAL) IVP ONE (21:15)
[2022-01-05 21:16] LABS: BILIRUBIN,TOTAL 0.3 MG/DL (0.1-1.0)
[2022-01-05 21:18] LABS: BACTERIA,URINE TRACE /HPF; WBC,URINE 0-2 /HPF
[2022-01-05 21:18] LABS: CREATININE SERUM 0.86 MG/DL (0.60-1.30)
--- NOTE | 2022-01-05 21:37 | Diagnostic Imaging Report ---
PROCEDURE: CT urinary tract, rule out kidney stone. TECHNIQUE: Multiple contiguous axial images were obtained through the abdomen and pelvis without the use of intravenous contrast. Auto Exposure Controls were utilized during the CT exam to meet ALARA standards for radiation dose reduction. INDICATION: Left-sided abdominal pain and flank pain. COMPARISON: CT abdomen and pelvis without contrast 12/09/2016. FINDINGS: Small esophageal hiatal hernia. The liver, gallbladder, pancreas, spleen, adrenals, kidneys, collecting systems and bladder are negative. Normal appendix. Complex multiloculated cystic mass in the left pelvis measures approximately 8.2 x 5.7 x 6.1 cm. The patient appears to be status post hysterectomy. No lymphadenopathy. No free intraperitoneal air or fluid. No evidence of bowel obstruction. No acute osseous findings. IMPRESSION: Complex multiloculated cystic mass in the left pelvis measuring up to 8.2 cm. This may be ovarian in origin and neoplasm is not excluded. The patient appears to be status post hysterectomy. Although this could be further characterized with pelvic ultrasound, surgical consultation is recommended. Findings discussed with Dr. Rajan Ricketts PA-C at 9:25 PM on 01/05/2022. Dictated by: Dictated on workstation # [id number]
[2022-01-05 22:26] VITALS: BP 149/114
== END 2022-01-05 22:27 | disposition home or self-care (01) ==
LOC: EDUNIT# 20:11 → ER 20:12
DX: N83.202 Unspecified ovarian cyst, left side (principal); F17.210 Nicotine dependence, cigarettes, uncomplicated; Z87.42 Personal history of other diseases of the female genital tract; Z87.19 Personal history of other diseases of the digestive system; Z90.710 Acquired absence of both cervix and uterus
CPT/HCPCS: 36415; 74176; 80053; 81000; 83690; 85025

== ENCOUNTER 2022-07-07 22:51 | Emergency (ER) | payer SELFPAY ==
[~2022-07-07] VITALS: Ht 175.2 cm; Wt 83.9 kg
[2022-07-07] MEDS ORDERED: KETOROLAC 30 MG/ML VIAL IVP STA (23:08)
[2022-07-07] MEDS ORDERED: ONDANSETRON 4 MG/2 ML (SDV) Z0FRAN IVP ONE (23:15)
[2022-07-07] MEDS ORDERED: LACTATED RINGERS 1,000 ML IV ONE (23:15)
[2022-07-07 23:21] LABS: BASOPHILS # (AUTO) 0.1 10^3/uL (0.0-0.1); BASOPHILS % (AUTO) 1 % (0-10); EOSINOPHILS # (AUTO) 0.1 10^3/uL (0.0-0.3); EOSINOPHILS % (AUTO) 1 % (0-10); HEMATOCRIT 36 % (35-52); HEMOGLOBIN 12.2 g/dL (11.5-16.0); LYMPHOCYTES # (AUTO) 3.9 10^3/uL (1.0-4.0); LYMPHOCYTES % (AUTO) 29 % (12-44); MEAN CORPUSCULAR HEMOGLOBIN 30 pg (25-34); MEAN CORPUSCULAR HGB CONC 34 g/dL (32-36); MEAN CORPUSCULAR VOLUME 89 fL (80-99); MEAN PLATELET VOLUME 10.1 fL (9.0-12.2); MONOCYTES # (AUTO) 0.9 10^3/uL (0.0-1.0); MONOCYTES % (AUTO) 7 % (0-12); NEUTROPHILS # (AUTO) 8.4 10^3/uL (1.8-7.8); NEUTROPHILS % (AUTO) 63 % (42-75); PLATELET COUNT 335 10^3/uL (130-400); WHITE BLOOD COUNT 13.4 10^3/uL (4.3-11.0)
[2022-07-07 23:28] LABS: BILIRUBIN,URINE NEGATIVE (NEGATIVE); CLARITY,URINE CLEAR; COLOR,URINE YELLOW; GLUCOSE, URINE (UA) NEGATIVE (NEGATIVE); KETONES,URINE TRACE (NEGATIVE); LEUKOCYTE ESTERASE ,URINE NEGATIVE (NEGATIVE); NITRITE,URINE NEGATIVE (NEGATIVE); PH,URINE 5.5 (5-9); PROTEIN,URINE NEGATIVE (NEGATIVE)
[2022-07-07 23:30] LABS: BILIRUBIN,TOTAL 0.3 MG/DL (0.1-1.0); CALCIUM 8.9 MG/DL (8.5-10.1); CREATININE SERUM 0.76 MG/DL (0.60-1.30); MAGNESIUM 1.9 MG/DL (1.6-2.4); POTASSIUM 3.3 MMOL/L (3.6-5.0); TOTAL PROTEIN 6.9 GM/DL (6.4-8.2)
[2022-07-07 23:43] LABS: AMPHETAMINE SCREEN, URINE NEGATIVE (NEGATIVE); BACTERIA,URINE NEGATIVE /HPF; BARBITURATE SCREEN URINE NEGATIVE (NEGATIVE); BENZODIAZEPINES SCREEN URINE NEGATIVE (NEGATIVE); CANNABINOID SCREEN, URINE NEGATIVE (NEGATIVE); COCAINE SCREEN URINE POSITIVE (NEGATIVE); METHADONE STAT NEGATIVE (NEGATIVE); OPIATE SCREEN URINE NEGATIVE (NEGATIVE); OXYCODONE STAT NEGATIVE (NEGATIVE); PROPOXYPHENE STAT NEGATIVE (NEGATIVE); TRICYCLIC ANTIDEPRESSANTS SCRE NEGATIVE (NEGATIVE)
--- NOTE | 2022-07-07 23:50 | ED Abdominal Pain ---
General Chief Complaint: Abdominal/GI Problems Stated Complaint: ABDOMINAL PAIN Nursing Triage Note: PT TO RM 6 WITH CC OF L LOWER ABD PAIN THAT RADIATES TO HER BACK, N/V, AND DIARRHEA BEGINING THIS PM. DENIES TAKING ANY PAIN OR NAUSEA MEDS PRIOR TO ARRIVAL. Source of Information: Patient History of Present Illness Date Seen by Provider: Jul 07, 2022 Time Seen by Provider: 23:03 Initial Comments PT ARRIVES VIA POV FROM HOME, WITH FEMALE STATES "2 HOURS AGO--AROUND 7 PM" SHE BEGAN HAVING LOWER ABDOMINAL CRAMPING AND PAIN--MOSTLY IN LLQ, AND RADIATING TO LEFT FLANK C/O NAUSEA AND VOMITED X 1. NO HEMATEMESIS OR COFFEE GROUND EMESIS HAS HAD DIARRHEA X 2-3. NO BLACK/BLOODY/TARRY STOOLS NO FEVER NO URINARY SYMPTOMS NO RESPIRATORY SYMPTOMS LEFT WORK AT [email or web address] DUE TO SYMPTOMS HAS NOT TAKEN ANYTHING FOR SYMPTOMS PCP: [facility] Allergies and Home Medications Allergies Coded Allergies: No Known Drug Allergies (Unverified , 03/13/21) Patient Home Medication List Home Medication List Reviewed: Yes Docusate Sodium (Dok) 100 Mg Capsule, 100 MG PO BID Prescribed by: ZION JORGENSEN on 03/13/21 1306 Fluoxetine HCl (Prozac) 40 Mg Capsule, 40 MG PO DAILY, (Reported) Entered as Reported by: AHMET WEBB on 03/07/21900 Ibuprofen (Ibuprofen) 800 Mg Tablet, 800 MG PO Q6HR Prescribed by: ZION JORGENSEN on 03/13/21 1306 Ketorolac Tromethamine (Ketorolac Tromethamine) 10 Mg Tablet, 10 MG PO Q6H Prescribed by: CLAIRE KEE on 07/08/22 014 Metoprolol Succinate (Metoprolol Succinate) 50 Mg Tab.er.24h, 50 MG PO DAILY, (Reported) Entered as Reported by: AHMET WEBB on 03/07/21 09 Naltrexone Microspheres (Vivitrol) 380 Mg Lyssa.er.rec, 380 MG IM MONTHLY, (Reported) Entered as Reported by: AHMET WEBB on 03/07/21 09 Ondansetron (Ondansetron Odt) 8 Mg Tab.rapdis, 8 MG PO Q6H Prescribed by: CLAIRE KEE on 07/08/22 014 Oxycodone HCl/Acetaminophen (Percocet 5-325 mg Tablet) 1 Each Tablet, 1 TAB PO Q4H PRN for PAIN-MODERATE (5-7) Prescribed by: ZION JORGENSEN on 03/13/21 1307 Review of Systems Review of Systems Constitutional: no symptoms reported; No fever EENTM: No Symptoms Reported Respiratory: No Symptoms Reported Cardiovascular: No Symptoms Reported Gastrointestinal: See HPI, Abdominal Pain, Diarrhea, Nausea, Vomiting Genitourinary: No Symptoms Reported Musculoskeletal: see HPI, back pain Skin: no symptoms reported Psychiatric/Neurological: No Symptoms Reported Endocrine: No Symptoms Reported Hematologic/Lymphatic: No Symptoms Reported Past Vhpwcqv-Vimgvq-Ilumiw Hx Patient Social History Tobacco Use?: Yes Tobacco type used: Cigarettes Smoking Status: Current Everyday Smoker Use of E-Cig and/or Vaping dev: Yes E-Cig or Vaping type used: Nicotine Use of E-Cig and/or Vaping Lucho: Current Everyday User Substance use?: Yes Substance type: Amphetamines, Methamphetamine, Opiates/Opioids, Misuse of prescript meds, Marijuana, Other Additional substance use comme: POLYSUBSTANCE ABUSE, INCLUDING IV METH, COCAINE USE., RX DRUGS Substance frequency: Daily Alcohol Use?: No Pt feels they are or have been: No Immunizations Up To Date Tetanus Booster (TDap): Less than 5yrs PED Vaccines UTD: Yes First/Initial COVID19 Vaccinat: PT REFUSES Second COVID19 Vaccination Gregorio: PT REFUSES Third COVID19 Vaccination Date: PT REFUSES Seasonal Allergies Seasonal Allergies: No Past Medical History Surgery/Hospitalization HX: PARTICAL HYST Surgeries: Yes (HERNIA REPAIR;HYST/RSO + APPY 02/2021) Abdominal, Appendectomy, Hysterectomy, Oophorectomy Respiratory: No Currently Using CPAP: No Currently Using BIPAP: No Cardiac: Yes Hypertension Neurological: No Reproductive Disorders: Yes Female Reproductive Disorders: Menstrual Problems, Endometriosis, Ovarian Cyst HIV/AIDS: No Genitourinary: No Gastrointestinal: Yes Gastroesophageal Reflux Musculoskeletal: No Endocrine: No HEENT: No Loss of Vision: Denies Hearing Impairment: Denies Cancer: No Psychosocial: Yes (SUBSTANCE ABUSE; accidental overdose) Anxiety, Depression Integumentary: No Blood Disorders: No Adverse Reaction/Blood Tranf: No Family Medical History Diabetes mellitus 19 MOTHER, Onset:40's - 50 FH: ovarian cancer in first degree relative 19 MOTHER, Onset:30's - 40 Hypercholesterolemia 19 MOTHER, Onset:40's - 50 Meningitis 19 FATHER, Onset:50's - 60 Pancreatitis 19 MOTHER, Onset:40's - 50 Pituitary disease 19 MOTHER, Onset:40's - 50 Cancer, Diabetes, GI Disease SOCIAL HISTORY: -ETOH--OCCASIONAL USE -DRUGS--+ IV METH USE, ALSO SMOKES IT. SNORTS COCAINE. ECSTASY USE. RX DRUG ABUSE--PHENTERMINE, HYDROCODONE. THC USE. 7 TREATMENT PROGRAMS, LAST ONE IN 2012 IN [place] MLTIPLE ACCIDENTAL OVER DOSES TRYING TO GET HIGH -SMOKES CIGARETTES PLUS VAPES Physical Exam Vital Signs Vital Signs - First Documented 07/07/22 22:57 Temp 37.1 Pulse 87 Resp 20 B/P (MAP) 157/118 (131) Pulse Ox 100 O2 Delivery Room Air Capillary Refill : Less Than 3 Seconds Height/Weight/BMI Height: 5'8.00" Weight: 160lbs. 0oz. 72.035366js; 27.00 BMI Method:Stated General Appearance: WD/WN, no apparent distress, other (SITTING AUSTRALIAN-STYLE; WALKS UPRIGHT AND MOVES WITHOUT DIFFICULTY. 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, no motor/sensory deficits, alert, normal mood/affect, oriented x 3 Skin: normal color, warm/dry Progress/Results/Core Measures Results/Orders Lab Results Laboratory Tests Test 07/07/22 23:01 07/07/22 23:19 Range/Units White Blood Count 13.4 H 4.3-11.0 10^3/uL Red Blood Count 4.04 3.80-5.11 10^6/uL Hemoglobin 12.2 11.5-16.0 g/dL Hematocrit 36 35-52 % Mean Corpuscular Volume 89 80-99 fL Mean Corpuscular Hemoglobin 30 25-34 pg Mean Corpuscular Hemoglobin Concent 34 32-36 g/dL Red Cell Distribution Width 12.7 10.0-14.5 % Platelet Count 335 130-400 10^3/uL Mean Platelet Volume 10.1 9.0-12.2 fL Immature Granulocyte % (Auto) 0 % Neutrophils (%) (Auto) 63 42-75 % Lymphocytes (%) (Auto) 29 12-44 % Monocytes (%) (Auto) 7 0-12 % Eosinophils (%) (Auto) 1 0-10 % Basophils (%) (Auto) 1 0-10 % Neutrophils # (Auto) 8.4 H 1.8-7.8 10^3/uL Lymphocytes # (Auto) 3.9 1.0-4.0 10^3/uL Monocytes # (Auto) 0.9 0.0-1.0 10^3/uL Eosinophils # (Auto) 0.1 0.0-0.3 10^3/uL Basophils # (Auto) 0.1 0.0-0.1 10^3/uL Immature Granulocyte # (Auto) 0.0 0.0-0.1 10^3/uL Sodium Level 138 135-145 MMOL/L Potassium Level 3.3 L 3.6-5.0 MMOL/L Chloride Level 104 98-107 MMOL/L Carbon Dioxide Level 24 21-32 MMOL/L Anion Gap 10 5-14 MMOL/L Blood Urea Nitrogen 10 7-18 MG/DL Creatinine 0.76 0.60-1.30 MG/DL Estimat Glomerular Filtration Rate 105 BUN/Creatinine Ratio 13 Glucose Level 103 70-105 MG/DL Calcium Level 8.9 8.5-10.1 MG/DL Corrected Calcium 8.9 8.5-10.1 MG/DL Magnesium Level 1.9 1.6-2.4 MG/DL Total Bilirubin 0.3 0.1-1.0 MG/DL Aspartate Amino Transf (AST/SGOT) 20 5-34 U/L Alanine Aminotransferase (ALT/SGPT) 20 0-55 U/L Alkaline Phosphatase 59 40-136 U/L Total Protein 6.9 6.4-8.2 GM/DL Albumin 4.0 3.2-4.5 GM/DL Amylase Level 26 25-125 U/L Lipase 11 8-78 U/L Urine Color YELLOW Urine Clarity CLEAR Urine pH 5.5 5-9 Urine Specific [place] >=1.030 1.016-1.022 Urine Protein NEGATIVE NEGATIVE Urine Glucose (UA) NEGATIVE NEGATIVE Urine Ketones TRACE H NEGATIVE Urine Nitrite NEGATIVE NEGATIVE Urine Bilirubin NEGATIVE NEGATIVE Urine Urobilinogen 0.2 < = 1.0 MG/DL Urine Leukocyte Esterase NEGATIVE NEGATIVE Urine RBC (Auto) NEGATIVE NEGATIVE Urine RBC NONE /HPF Urine WBC NONE /HPF Urine Crystals NONE /LPF Urine Bacteria NEGATIVE /HPF Urine Casts NONE /LPF Urine Mucus MODERATE H /LPF Urine Culture Indicated NO Urine Opiates Screen NEGATIVE NEGATIVE Urine Oxycodone Screen NEGATIVE NEGATIVE Urine Methadone Screen NEGATIVE NEGATIVE Urine Propoxyphene Screen NEGATIVE NEGATIVE Urine Barbiturates Screen NEGATIVE NEGATIVE Ur Tricyclic Antidepressants Screen NEGATIVE NEGATIVE Urine Phencyclidine Screen NEGATIVE NEGATIVE Urine Amphetamines Screen NEGATIVE NEGATIVE Urine Methamphetamines Screen NEGATIVE NEGATIVE Urine Benzodiazepines Screen NEGATIVE NEGATIVE Urine Cocaine Screen POSITIVE H NEGATIVE Urine Cannabinoids Screen NEGATIVE NEGATIVE My Orders Orders - CLAIRE KEE DO Ed Iv/Invasive Line Start (07/07/22 23:08) Monitor-Rhythm Ecg Trace Only (07/07/22 23:08) Ct Abd/Pelvis Wo(Kidney Stone) (07/07/22 23:08) Abdomen, Flat & Upright/Decub (07/07/22 23:08) Amylase (07/07/22 23:08) Cbc With Automated Diff (07/07/22 23:08) Comprehensive Metabolic Panel (07/07/22 23:08) Drug Screen Stat (Urine) (07/07/22 23:08) Lipase (07/07/22 23:08) Magnesium (07/07/22 23:08) Ua Culture If Indicated (07/07/22 23:08) Ed Iv/Invasive Line Start (07/07/22 23:08) Lactated Ringers (Lr 1000 Ml Iv Solution (07/07/22 23:15) Ondansetron Injection (Zofran Injectio (07/07/22 23:15) Ketorolac Injection (Toradol Injection) (07/07/22 23:08) Medications Given in ED Current Medications Medications Dose Ordered Sig/Heri Route Start Time Stop Time Status Last Admin Dose Admin Lactated Ringer's 1,000 ml @ 0 mls/hr Q0M ONCE IV 07/07/22 23:15 07/07/22 23:16 DC 07/07/22 23:41 1,000 MLS/HR Ondansetron HCl 8 mg ONCE ONCE IVP 07/07/22 23:15 07/07/22 23:16 DC 07/07/22 23:41 8 MG Vital Signs/I&O 07/07/22 07/08/22 22:57 01:50 Temp 37.1 36.3 Pulse 87 75 Resp 20 16 B/P (MAP) 157/118 (131) 138/98 Pulse Ox 100 97 O2 Delivery Room Air Room Air Blood Pressure Mean: 131 Progress Progress Note : Progress Note GIVEN : -IV FLUIDS -ZOFRAN -TORADOL COMPLETE RELIEF OF SYMPTOMS. NO VOMITING DURING ER STAY. NO DIARRHEA AT ANY TIME. PT LAYING DOWN AND RESTING / SLEEPING AT INTERVALS NO DETERIORATION IN PT'S CONDITION DURING ER STAY REVIEWED ALL TEST RESULTS, ANTICIPATED COURSE, NEED FOR FOLLOW UP, PRESCRIPTIONS, DRUG USE AND RETURN PRECAUTIONS DISCUSSED WITH PT. Diagnostic Imaging Comments CT ABDOMEN/PELVIS--PER [facility] VIA FAX AT 0139 -RIGHT ADNEXAL THICK-WALLED CYSTIC MASS MEASURING 5 CM. -UTERUS APPEARS TO HAVE FLUID FILLED ENDOMETRIUM -SMALL AMOUNT OF PELVIC FLUID 0158--DISCUSSED CT REPORT WITH RADIOLOGIST, AND INFORMED HIM THAT PT HAS HAD HYSTERECTOMY WITH RIGHT OOPHORECTOMY. HE WILL REVIEW AND REVISE DICTATION. 0217--REVISED REPORT RECEIVED VIA FAX FROM [facility]. Reviewed: Reviewed by Me, Discussed w/Radiologist, Reviewed/Discussed Departure Impression Primary Impression: llq and left flank pain Additional Impressions: Illicit drug use OVARIAN CYST Disposition: HOME, SELF-CARE Condition: Improved Departure-Patient Inst. Decision time for Depature: 01:43 Referrals: [facility] (PCP) Primary Care Physician KASSIE BHAT APRN (Family) Primary Care Physician Patient Instructions: Abdominal Pain, Adult ED, Drug Abuse and Drug Addiction (DC), Ovarian Cyst ED Add. Discharge Instructions: HOME, REST LOTS OF CLEAR LIQUIDS--WATER, BROTH, JELLO, GATORADE BRATS DIET--BANANAS, RICE, APPLESAUCE, TOAST, SALTINES TYLENOL AND MOTRIN NEEDED FOR PAIN OR FEVER NO DRUGS NO ALCOHOL FOLLOW UP WITH [facility] IN 2-3 DAYS IF NO BETTER, OTHERWISE FOLLOW UP IN 1-2 WEEKS FOR FURTHER EVALUATION OF OVARIAN CYST All discharge instructions reviewed with patient and/or family. Voiced understanding. Scripts Ondansetron (Ondansetron Odt) 8 Mg Tab.rapdis 8 MG PO Q6H, #10 TAB Prov: CLAIRE KEE DO 07/08/22 Ketorolac Tromethamine (Ketorolac Tromethamine) 10 Mg Tablet 10 MG PO Q6H for Pain, #15 TAB Prov: CLAIRE KEE DO 07/08/22 CLAIRE KEE DO Jul 07, 2022 23:50
[2022-07-08] MEDS ORDERED: KETO10TA PO (01:45)
[2022-07-08] MEDS ORDERED: ONDA8TAB13 PO (01:45)
[2022-07-08 01:50] VITALS: BP 138/98
--- NOTE | 2022-07-08 08:10 | Diagnostic Imaging Report ---
EXAMINATION: Abdomen 2 view HISTORY: abd pain COMPARISON: None available. FINDINGS: There is a moderate amount of gas and stool throughout the colon. Nonobstructive bowel gas pattern. No radiopaque foreign body. The lung bases are clear. The osseous structures are intact. IMPRESSION: Moderate stool burden without other acute abnormality in the abdomen. Dictated by: Dictated on workstation # [id number]
--- NOTE | 2022-07-08 08:21 | Diagnostic Imaging Report ---
EXAMINATION: CT abdomen and pelvis without contrast. TECHNIQUE: Multiple contiguous axial images were obtained through the abdomen and pelvis without the use of intravenous contrast. All CT scans use one or more of the following dose optimizing techniques: automated exposure control, MA and/or KvP adjustment based on patient size and exam type or iterative reconstruction. HISTORY: Flank pain, kidney stone suspected COMPARISON: 07/07/2022 FINDINGS: Lung bases: The lung bases are clear. Solid organs: The liver is normal. The gallbladder is normal. There is no biliary ductal dilation. Pancreas is normal. Spleen is normal. Adrenal glands are normal. The kidneys are normal without visualized calculus or hydronephrosis. Bowel: The stomach and small bowel are normal without obstruction. Colon is unremarkable. No findings of acute appendicitis. Peritoneum: There is trace free fluid in the pelvis. No loculated fluid collection or free air. No suspicious lymphadenopathy. Vasculature: Normal without aneurysm. Musculoskeletal: No suspicious osseous lesion or compression fracture. Pelvis: Complex cystic mass within the pelvis measuring up to 5.7 x 8.8 cm, increased in size from 01/05/2022. The urinary bladder is normal. IMPRESSION: 1. No visualized renal calculus or hydronephrosis. 2. No other acute abnormality in the abdomen or pelvis. 3. Increasing size of the complex cystic structure in the pelvis which could be further evaluated by ultrasound. 4. Agree with preliminary interpretation. Dictated by: Dictated on workstation # [id number]
== END 2022-07-08 01:50 | disposition home or self-care (01) ==
LOC: EDUNIT# 22:51 → ER 22:53
DX: N83.201 Unspecified ovarian cyst, right side (principal); F19.90 Other psychoactive substance use, unspecified, uncomplicated; F17.210 Nicotine dependence, cigarettes, uncomplicated; F17.290 Nicotine dependence, other tobacco product, uncomplicated; Z28.310 Unvaccinated for COVID-19; Z87.19 Personal history of other diseases of the digestive system; Z98.890 Other specified postprocedural states; Z90.49 Acquired absence of other specified parts of digestive tract
CPT/HCPCS: 36415; 74019; 74176; 80053; 80306; 81000; 82150; 83690; 83735; 85025

== ENCOUNTER 2023-06-22 17:29 | Emergency (ER) | payer OTHER ==
[~2023-06-22] VITALS: Ht 175.3 cm; Wt 78.9 kg
[~2023-06-22 17:29] MED LIST changes: +KETO10TA PO; +ONDA8TAB13 PO
[2023-06-22] MEDS ORDERED: NS IV 1000 ML 1,000 ML IV STA (18:13)
[2023-06-22] MEDS ORDERED: KETOROLAC INJ 30 MG/ML VIAL IVP ONE (18:15)
[2023-06-22] MEDS ORDERED: ONDANSETRON INJECTION 4 MG/2 ML (SDV) IVP ONE (18:15)
--- NOTE | 2023-06-22 18:16 | ED Abdominal Pain ---
General Chief Complaint: Abdominal/GI Problems Stated Complaint: STOMACH PAIN, VOMITING, FEVERISH Nursing Triage Note: PT AMB TO RM 8 WITH COMPLAINT OF ABD PAIN AND VOMITING. STATES ATE [employer] AROUND 3PM, TOOK A NAP, AND WOKE UP WITH PAIN. Source of Information: Patient Exam Limitations: No Limitations History of Present Illness Date Seen by Provider: Jun 22, 2023 Time Seen by Provider: 18:15 Initial Comments Patient is a 37-year-old female with a history of partial hysterectomy, appendectomy, umbilical hernia who presents to ED with abdominal pain chest pain. This started around 415. She states she ate Panda around 3 PM today. She took a nap woke up with severe pain in her abdomen and upper chest. She states she vomited several times nonbilious without any hematemesis. Has not had any diarrhea. Pain was worse at home. She rates pain 6 out of 10. Pain is sharp with a crampy pain in her back as well as in her abdomen. She has not been able to take any medication. She reports feeling feverish and chills. No known cardiac history recent travels or surgeries. Denies history of GERD. Denies of any dysuria, hematuria, increased urine frequency, concern for pregnan cy, vaginal bleeding, short of breath. Allergies and Home Medications Allergies Coded Allergies: No Known Drug Allergies (Unverified , 03/13/21) Patient Home Medication List Home Medication List Reviewed: Yes Docusate Sodium (Dok) 100 Mg Capsule, 100 MG PO BID Prescribed by: ZION JORGENSEN on 03/13/21 1306 Fluoxetine HCl (Prozac) 40 Mg Capsule, 40 MG PO DAILY, (Reported) Entered as Reported by: AHMET WEBB on 03/07/21 0901 Ibuprofen (Ibuprofen) 800 Mg Tablet, 800 MG PO Q6HR Prescribed by: ZION JORGENSEN on 03/13/21 1306 Ketorolac Tromethamine (Ketorolac Tromethamine) 10 Mg Tablet, 10 MG PO Q6H Prescribed by: CLAIRE KEE on 07/08/22 0145 Metoprolol Succinate (Metoprolol Succinate) 50 Mg Tab.er.24h, 50 MG PO DAILY, (Reported) Entered as Reported by: AHMET WEBB on 03/07/21 0901 Naltrexone Microspheres (Vivitrol) 380 Mg Lyssa.er.rec, 380 MG IM MONTHLY, (Reported) Entered as Reported by: AHMET WEBB on 03/07/21 0901 Ondansetron (Ondansetron Odt) 8 Mg Tab.rapdis, 8 MG PO Q6H Prescribed by: CLAIRE KEE on 07/08/22 0145 Oxycodone HCl/Acetaminophen (Percocet 5-325 mg Tablet) 1 Each Tablet, 1 TAB PO Q4H PRN for PAIN-MODERATE (5-7) Prescribed by: ZION JORGENSEN on 03/13/21 1307 Review of Systems Review of Systems Constitutional: No chills, No diaphoresis EENTM: No Double Vision, No Eye Pain Respiratory: Denies Cough, Denies Orthopnea Cardiovascular: Chest Pain Gastrointestinal: Abdominal Pain; Denies Diarrhea; Nausea, Vomiting Genitourinary: Denies Burning, Denies Discharge, Denies Drainage, Denies Frequency Musculoskeletal: No joint pain Skin: No change in color, No change in hair/nails All Other Systems Reviewed Negative Unless Noted: Yes Past Iqnthwj-Bafbqk-Ghhdqw Hx Patient Social History Tobacco Use?: No Use of E-Cig and/or Vaping dev: Yes Substance use?: No Alcohol Use?: No Pt feels they are or have been: No Immunizations Up To Date Tetanus Booster (TDap): Less than 5yrs PED Vaccines UTD: Yes First/Initial COVID19 Vaccinat: PT REFUSES Second COVID19 Vaccination Gregorio: PT REFUSES Third COVID19 Vaccination Date: PT REFUSES Seasonal Allergies Seasonal Allergies: No Past Medical History Surgery/Hospitalization HX: PARTICAL HYST Surgeries: Yes (HERNIA REPAIR;HYST/RSO + APPY 02/2021) Abdominal, Appendectomy, Hysterectomy, Oophorectomy Respiratory: No Currently Using CPAP: No Currently Using BIPAP: No Cardiac: Yes Hypertension Neurological: No Reproductive Disorders: Yes Female Reproductive Disorders: Menstrual Problems, Endometriosis, Ovarian Cyst HIV/AIDS: No Genitourinary: No Gastrointestinal: Yes Gastroesophageal Reflux Musculoskeletal: No Endocrine: No HEENT: No Loss of Vision: Denies Hearing Impairment: Denies Cancer: No Psychosocial: Yes (SUBSTANCE ABUSE; accidental overdose) Anxiety, Depression Integumentary: No Blood Disorders: No Adverse Reaction/Blood Tranf: No Family Medical History Diabetes mellitus 19 MOTHER, Onset:40's - 50 FH: ovarian cancer in first degree relative 19 MOTHER, Onset:30's - 40 Hypercholesterolemia 19 MOTHER, Onset:40's - 50 Meningitis 19 FATHER, Onset:50's - 60 Pancreatitis 19 MOTHER, Onset:40's - 50 Pituitary disease 19 MOTHER, Onset:40's - 50 Cancer, Diabetes, GI Disease SOCIAL HISTORY: -ETOH--OCCASIONAL USE -DRUGS--+ IV METH USE, ALSO SMOKES IT. SNORTS COCAINE. ECSTASY USE. RX DRUG ABUSE--PHENTERMINE, HYDROCODONE. THC USE. 7 TREATMENT PROGRAMS, LAST ONE IN 2013 IN [place] ACCIDENTAL OVER DOSES TRYING TO GET HIGH -SMOKES CIGARETTES PLUS VAPES Physical Exam Vital Signs Vital Signs - First Documented 06/22/23 18:03 Temp 36.8 Pulse 75 Resp 16 B/P (MAP) 145/101 (116) Pulse Ox 99 O2 Delivery Room Air Capillary Refill : Less Than 3 Seconds Height/Weight/BMI Height: 5'8.00" Weight: 160lbs. 0oz. 72.216363wd; 25.00 BMI Method:Stated General Appearance: WD/WN, no apparent distress HEENT: PERRL/EOMI, normal ENT inspection, TMs normal, pharynx normal Neck: non-tender, full range of motion, supple Respiratory: chest non-tender, lungs clear, normal breath sounds, no respiratory distress, no accessory muscle use Cardiovascular: regular rate, rhythm, no gallop, no JVD Gastrointestinal: normal bowel sounds, soft, no organomegaly, tenderness (Epigastric tenderness, lower abdominal tenderness. Normal bowel sounds throughout. No rebound or guarding.) Extremities: normal range of motion, non-tender, normal inspection, no pedal edema Back: normal inspection, no CVA tenderness Neurologic/Psychiatric: adult protective caseworker II-XII nml as tested, no motor/sensory deficits, alert, normal mood/affect, oriented x 3 Skin: normal color, warm/dry Progress/Results/Core Measures Results/Orders Lab Results Laboratory Tests Test 06/22/23 18:29 06/22/23 18:45 Range/Units Urine Color YELLOW Urine Clarity CLEAR Urine pH 6.0 5-9 Urine Specific [place] 1.025 H 1.016-1.022 Urine Protein 1+ H NEGATIVE Urine Glucose (UA) NEGATIVE NEGATIVE Urine Ketones NEGATIVE NEGATIVE Urine Nitrite NEGATIVE NEGATIVE Urine Bilirubin 1+ H NEGATIVE Urine Urobilinogen 1.0 < = 1.0 MG/DL Urine Leukocyte Esterase NEGATIVE NEGATIVE Urine RBC (Auto) NEGATIVE NEGATIVE Urine RBC 0-2 /HPF Urine WBC 0-2 /HPF Urine Squamous Epithelial Cells 25-50 H /HPF Urine Crystals NONE /LPF Urine Bacteria FEW H /HPF Urine Casts NONE /LPF Urine Mucus MODERATE H /LPF Urine Culture Indicated NO Urine Test NEGATIVE NEGATIVE White Blood Count 9.7 4.3-11.0 10^3/uL Red Blood Count 4.11 3.80-5.11 10^6/uL Hemoglobin 12.5 11.5-16.0 g/dL Hematocrit 38 35-52 % Mean Corpuscular Volume 92 80-99 fL Mean Corpuscular Hemoglobin 30 25-34 pg Mean Corpuscular Hemoglobin Concent 33 32-36 g/dL Red Cell Distribution Width 12.0 10.0-14.5 % Platelet Count 286 130-400 10^3/uL Mean Platelet Volume 10.4 9.0-12.2 fL Immature Granulocyte % (Auto) 0 % Neutrophils (%) (Auto) 66 42-75 % Lymphocytes (%) (Auto) 25 12-44 % Monocytes (%) (Auto) 6 0-12 % Eosinophils (%) (Auto) 1 0-10 % Basophils (%) (Auto) 1 0-10 % Neutrophils # (Auto) 6.4 1.8-7.8 10^3/uL Lymphocytes # (Auto) 2.4 1.0-4.0 10^3/uL Monocytes # (Auto) 0.6 0.0-1.0 10^3/uL Eosinophils # (Auto) 0.1 0.0-0.3 10^3/uL Basophils # (Auto) 0.1 0.0-0.1 10^3/uL Immature Granulocyte # (Auto) 0.0 0.0-0.1 10^3/uL Sodium Level 140 135-145 MMOL/L Potassium Level 3.9 3.6-5.0 MMOL/L Chloride Level 106 98-107 MMOL/L Carbon Dioxide Level 27 21-32 MMOL/L Anion Gap 7 5-14 MMOL/L Blood Urea Nitrogen 10 7-18 MG/DL Creatinine 0.77 0.60-1.30 MG/DL Estimat Glomerular Filtration Rate 102 BUN/Creatinine Ratio 13 Glucose Level 112 H 70-105 MG/DL Calcium Level 8.5 8.5-10.1 MG/DL Corrected Calcium 8.5 8.5-10.1 MG/DL Total Bilirubin 0.3 0.1-1.0 MG/DL Aspartate Amino Transf (AST/SGOT) 24 5-34 U/L Alanine Aminotransferase (ALT/SGPT) 17 0-55 U/L Alkaline Phosphatase 53 40-136 U/L Troponin I < 0.028 <0.028 NG/ML Total Protein 6.6 6.4-8.2 GM/DL Albumin 4.0 3.2-4.5 GM/DL Lipase 13 8-78 U/L My Orders Orders - ALIS RINALDI Cbc And Automated Diff (06/22/23 18:13) Comprehensive Metabolic Panel (06/22/23 18:13) Lipase (06/22/23 18:13) Troponin I [place] (06/22/23 18:13) Ekg Tracing (06/22/23 18:13) Ondansetron Injection (Ondansetron Inj (06/22/23 18:15) Ketorolac Injection (Ketorolac Injection (06/22/23 18:15) Ns Iv 1000 Ml (Ns Iv 1000 Ml) (06/22/23 18:13) Chest 1 View, Ap/Pa Only (06/22/23 18:17) Ua Culture If Indicated (06/22/23 18:17) Hcg,Qualitative Urine (06/22/23 18:17) Rx-Ondansetron Po (Rx-Zofran Po) (06/22/23 20:15) Medications Given in ED Current Medications Medications Dose Ordered Sig/Heri Route Start Time Stop Time Status Last Admin Dose Admin Ketorolac Tromethamine 30 mg ONCE ONCE IVP 06/22/23 18:15 06/22/23 18:16 DC 06/22/23 18:42 30 MG Ondansetron HCl 4 mg ONCE ONCE IVP 06/22/23 18:15 06/22/23 18:16 DC 06/22/23 18:43 4 MG Ondansetron HCl 4 mg ONCE ONCE PO 06/22/23 20:15 06/22/23 20:10 DC 06/22/23 20:07 4 MG Vital Signs/I&O 06/22/23 06/22/23 18:03 20:08 Temp 36.8 36.9 Pulse 75 68 Resp 16 16 B/P (MAP) 145/101 (116) 113/83 Pulse Ox 99 99 O2 Delivery Room Air Room Air Blood Pressure Mean: 116 Departure Communication (PCP) Patient presents ED for abdominal pain chest pain vomiting. This occurred around 415 this evening. She ate Panda around 3 pm. No known cardiac history. History of appendectomy, . Differential diagnosis gastritis, pancreatitis, gastroenteritis, cholecystitis, hepatitis, food intolerance, food poisoning. EKG was obtained which did not show any evidence of ST elevation or depression. bradycardia with sinus arrhythmia. Troponin negative. CBC, CMP lipase grossly unremarkable. Chest x-ray was negative for pneumonia, pneumothorax, mediastinal widening. Received Toradol, liter fluid and Zofran with improvement of pain. She was observed here in the ED with continue improvement. Reassessed the abdomen without any specific tenderness. Reassuring lab work. Does not appear to be surgical. She is feeling much better at this time. Will discharge with clear liquids for the next 2 days. Will discharge with Zofran as needed. Recommend Protonix. If any worsening symptoms return back to ED for further evaluation. Follow-up your PCP in 2 to 3 days for reevaluation. Vital signs stable. Impression Primary Impression: Abdominal pain Disposition: HOME, SELF-CARE Condition: Stable Departure-Patient Inst. Decision time for Depature: 20:01 Referrals: [facility]/ALEXANDRE (PCP) Primary Care Physician KASSIE BHAT APRN (Family) Primary Care Physician Patient Instructions: Abdominal pain Work/School Note: Work Release Form Date Seen in the Emergency Department: Jun 22, 2023 Return to Work: Jun 24, 2023 ALIS RINALDI Jun 22, 2023 18:16
--- NOTE | 2023-06-22 18:48 | Diagnostic Imaging Report ---
INDICATION: Substernal chest pain Portable chest 6:26 PM Heart size and pulmonary vascularity are normal. Lungs are clear. There are no effusions or pneumothoraces. IMPRESSION: No acute abnormalities in the chest. Dictated by: Dictated on workstation # [id number]
[2023-06-22 19:01] LABS: BASOPHILS # (AUTO) 0.1 10^3/uL (0.0-0.1); BASOPHILS % (AUTO) 1 % (0-10); EOSINOPHILS # (AUTO) 0.1 10^3/uL (0.0-0.3); EOSINOPHILS % (AUTO) 1 % (0-10); HEMATOCRIT 38 % (35-52); HEMOGLOBIN 12.5 g/dL (11.5-16.0); LYMPHOCYTES # (AUTO) 2.4 10^3/uL (1.0-4.0); LYMPHOCYTES % (AUTO) 25 % (12-44); MEAN CORPUSCULAR HEMOGLOBIN 30 pg (25-34); MEAN CORPUSCULAR HGB CONC 33 g/dL (32-36); MEAN CORPUSCULAR VOLUME 92 fL (80-99); MEAN PLATELET VOLUME 10.4 fL (9.0-12.2); MONOCYTES # (AUTO) 0.6 10^3/uL (0.0-1.0); MONOCYTES % (AUTO) 6 % (0-12); NEUTROPHILS # (AUTO) 6.4 10^3/uL (1.8-7.8); NEUTROPHILS % (AUTO) 66 % (42-75); PLATELET COUNT 286 10^3/uL (130-400); WHITE BLOOD COUNT 9.7 10^3/uL (4.3-11.0)
[2023-06-22 19:04] LABS: BILIRUBIN,URINE 1+ (NEGATIVE); CLARITY,URINE CLEAR; COLOR,URINE YELLOW; GLUCOSE, URINE (UA) NEGATIVE (NEGATIVE); KETONES,URINE NEGATIVE (NEGATIVE); NITRITE,URINE NEGATIVE (NEGATIVE); PROTEIN,URINE 1+ (NEGATIVE)
[2023-06-22 19:05] LABS: BACTERIA,URINE FEW /HPF; LEUKOCYTE ESTERASE ,URINE NEGATIVE (NEGATIVE); RBC,URINE 0-2 /HPF; SQUAMOUS EPITHELIAL CELL,UR 25-50 /HPF; WBC,URINE 0-2 /HPF
[2023-06-22 19:24] LABS: CHLORIDE 106 MMOL/L (98-107); POTASSIUM 3.9 MMOL/L (3.6-5.0); SODIUM 140 MMOL/L (135-145)
[2023-06-22 19:25] LABS: CALCIUM 8.5 MG/DL (8.5-10.1)
[2023-06-22 19:26] LABS: GLUCOSE 112 MG/DL (70-105)
[2023-06-22 19:27] LABS: TOTAL PROTEIN 6.6 GM/DL (6.4-8.2)
[2023-06-22 19:28] LABS: BILIRUBIN,TOTAL 0.3 MG/DL (0.1-1.0); CARBON DIOXIDE 27 MMOL/L (21-32)
[2023-06-22 19:30] LABS: ALKALINE PHOSPHATASE 53 U/L (40-136); CREATININE SERUM 0.77 MG/DL (0.60-1.30); GFR ESTIMATED 102
[2023-06-22 19:31] LABS: BUN/CREATININE RATIO 13
[2023-06-22 19:33] LABS: ALANINE AMINOTRANSFERASE 17 U/L (0-55); LIPASE 13 U/L (8-78)
[2023-06-22 20:08] VITALS: BP 113/83
[2023-06-22] MEDS ORDERED: RX-ONDANSETRON 4 MG ODT (ZOFRAN) PPK #4 PO ONE (20:15)
== END 2023-06-22 20:10 | disposition home or self-care (01) ==
LOC: EDUNIT# 17:29 → ER 17:32
DX: R10.13 Epigastric pain (principal); R10.30 Lower abdominal pain, unspecified; R07.2 Precordial pain; R11.10 Vomiting, unspecified; F17.210 Nicotine dependence, cigarettes, uncomplicated; F17.290 Nicotine dependence, other tobacco product, uncomplicated; Z90.49 Acquired absence of other specified parts of digestive tract; Z87.19 Personal history of other diseases of the digestive system
CPT/HCPCS: 36415; 71045; 80053; 81000; 83690; 84484; 84703; 85025; 93005